=== PATIENT | male | born 1945 | race African-American/Black ===

== ENCOUNTER 2019-12-03 10:13 | Outpatient (REF) | payer MEDICARE, SELFPAY ==
--- NOTE | 2019-12-03 10:23 | XR_ITS ---
EXAMINATION: XR LUMBOSACRAL SPINE CLINICAL INFORMATION: Lower back pain COMPARISON: None TECHNIQUE: Three views of the lumbosacral spine. FINDINGS: There is no acute fracture or subluxation. Mild dextroscoliosis. Vertebral body heights are maintained. Diffuse disc space narrowing with endplate sclerosis. Prominent bridging osteophytes bilaterally and anteriorly. Multilevel facet arthropathy. The sacroiliac joints are symmetric. The sacrum appears intact. The visualized bowel gas pattern is unremarkable. IMPRESSION: Moderate degenerative changes of the lumbar spine.
== END 2019-12-03 10:14 | disposition home or self-care (01) ==
LOC: HO.XRAY 10:13
PROVIDERS: PCP Internal Medicine; Visit Provider Internal Medicine
DX: M54.5 Low back pain (principal); M79.662 Pain in left lower leg
CPT/HCPCS: 72100

== ENCOUNTER 2019-12-23 10:18 | Outpatient (REF) | payer MEDICARE, SELFPAY ==
--- NOTE | 2019-12-23 10:18 | MR_ITS ---
EXAMINATION: MR LUMBAR SPINE WITHOUT CONTRAST CLINICAL INFORMATION: Low back pain and radiculopathy. COMPARISON: MRI dated 07/05/2015. TECHNIQUE: MRI of the lumbar spine was obtained using routine sequences without contrast. FINDINGS: VERTEBRAL BODIES AND PARASPINAL STRUCTURES: There is a worsened dcdi-af-muzkcgba rightward curvature of the lumbar spine centered at the L2-L3 level. Severe disc space narrowing with mixed chronic and mild edematous endplate changes has progressed at the L3-L4 level. Moderate loss of disc height with chronic endplate changes also evident at the L2-L3, L4-L5, and L5-S1 levels. No compression fractures are visible. There is a reversal of the normal lumbar lordosis. The paraspinal soft tissues are unremarkable. CONUS MEDULLARIS AND CAUDA EQUINA: Normal, terminating at the level of L1-L2. No lower cord signal abnormality is seen. The cauda equina nerve roots are normal. SPINAL LEVELS: L1-L2: Mild disc bulge present without central canal stenosis. Mild foraminal narrowing without change. L2-L3: Moderate loss of disc height with significant ossific spurring lateralized to the left side. Moderate facet arthropathy and mild central canal stenosis are stable. Endplate spurring contacts the extraforaminal left L2 nerve root without change. Mild foraminal encroachment. L3-L4: Worsened degenerative disc disease compared to the prior study with exuberant facet arthropathy, more so on the left side. Worsened moderate central canal stenosis with facet spurring impinging upon the left L4 nerve root in the subarticular zone. Osseous spurring compresses the exiting left L3 nerve root, as on the prior study. Broad-based right lateral disc bulge also continues to distort the extraforaminal right L3 nerve root. L4-L5: Ywaxcjnz-jw-stctsv loss of disc height with exuberant facet arthropathy and a generalized disc bulge result in moderate central canal stenosis and impingement of the L5 nerve roots in the subarticular zones without change. Fdnpsaeu-da-somsxz foraminal narrowing again evident with mild distortion of the exiting right L4 nerve root. L5-S1: Hypertrophic facet arthropathy and posterior disc bulge with endplate spurring remains stable with severe left foraminal encroachment and moderate right foraminal narrowing. No central canal stenosis. MR/MR lumbar spine wo con IMPRESSION: 1. Worsened vdie-nh-gjqughnu rightward lumbar spinal curvature centered at the L2-L3 level with progressed severe spondylosis at L3-L4. Moderate central canal stenosis at this level with facet arthropathy impinging upon the left L4 nerve root. Osseous spurring and bulging disc also continue to compress both L3 nerve roots. 2. Moderate degenerative disc disease and facet arthropathy at L2-L3, L4-L5, and L5-S1 are otherwise without significant change.
== END 2019-12-23 10:19 | disposition home or self-care (01) ==
LOC: HO.MRI 10:18
PROVIDERS: PCP Internal Medicine; Visit Provider Internal Medicine
DX: M54.16 Radiculopathy, lumbar region (principal)
CPT/HCPCS: 72148

== ENCOUNTER 2020-07-01 09:43 | Outpatient (REF) | payer OTHER, SELFPAY ==
--- NOTE | ~2020-07-01 | CT_ITS ---
EXAMINATION: CT CHEST WITHOUT CONTRAST CLINICAL INFORMATION: Asbestos exposure COMPARISON: Previous chest CT June 2014 TECHNIQUE: Multidetector volumetric CT imaging of the chest was done. Axial MIP volume rendering provided. Sagittal and coronal reformatted images were obtained. This CT examination was performed using dose optimization techniques as appropriate, variously including the following: *Automated exposure control *Adjustment of mA and/or kV according to patient size (this includes techniques or standardized protocols for targeted exams where dose is matched to indication/reason for exam; i.e. extremities or head) *Use of iterative reconstruction technique DLP: 157 mGy-cm FINDINGS: LUNGS: There are innumerable small cysts seen throughout the lungs. Largest cyst measures 1 cm. This is increased from June 2014 exam. There are small calcified and noncalcified pulmonary nodules that are stable, largest measuring 2 to 3 mm. No bronchiectasis or endobronchial or endotracheal lesion is seen. MEDIASTINUM: The mediastinum is normal. PLEURA: There is no pleural effusion. No pleural mass or thickening. AXILLA: There is bilateral axillary lymphadenopathy, left greater than right. Lymph nodes are upper normal in size. UPPER ABDOMEN: Unremarkable. OSSEOUS STRUCTURES: There is increased sclerosis of the T5 vertebral body. This is similar to 2015 CT scan and therefore probably benign. Bony structures are otherwise unremarkable. CT/CT chest wo con IMPRESSION: Innumerable small lung cysts increased from 2015. This may represent pulmonary Langerhans cell histiocytosis related to smoking. Differential would include NARANJO, changes from interstitial pneumonitis such as DIP or LIP. This can also be seen with systemic diseases such as neurofibromatosis, amyloid and light chain deposition disease. No evidence of pleural asbestos related disease or pulmonary asbestosis is seen. Nonspecific diffuse sclerosis of the T5 vertebral body. This is similar to 2015 exam and therefore probably benign.
== END 2020-07-01 09:44 | disposition home or self-care (01) ==
LOC: HO.CT 09:43
PROVIDERS: PCP Internal Medicine; Visit Provider Internal Medicine
DX: Z77.090 Contact with and (suspected) exposure to asbestos (principal)
CPT/HCPCS: 71250

== ENCOUNTER 2020-08-24 15:36 | Outpatient (REF) | payer OTHER, SELFPAY ==
--- NOTE | ~2020-08-24 | US_ITS ---
EXAMINATION: US RETROPERITONEAL COMPLETE (RENAL) CLINICAL INFORMATION: Nocturia. COMPARISON: None TECHNIQUE: Real-time imaging of the kidneys and bladder. FINDINGS: RIGHT KIDNEY: 10.3 x 6.5 x 6.1 cm (SAG x AP x TRV). The kidney is normal in size and contour. Renal cortical thickness is normal. No calculi or focal parenchymal lesions. No hydronephrosis. LEFT KIDNEY: 10.6 x 6.9 x 6.2 cm (SAG x AP x TRV). The kidney is normal in size and contour. Renal cortical thickness is normal. No calculi or focal parenchymal lesions. No hydronephrosis. BLADDER: The bladder wall is slightly thickened and trabeculated. No stone or mass is seen. Bilateral ureteral jets are demonstrated. Prevoid bladder volume is 202 mL. Postvoid bladder volume is 49.2 mL. The prostate gland is enlarged and protrudes into the base of the bladder. The prostate gland measures 4.7 x 4.2 x 5.8 cm, volume 61 mL. US/US retroperitoneal comp IMPRESSION: Normal renal ultrasound. Slightly thickened trabeculated bladder wall. Small 49 mL post void bladder residual. Enlarged prostate gland that protrudes into the base of the bladder..
== END 2020-08-24 15:37 | disposition home or self-care (01) ==
LOC: HO.HMGCX 15:36
PROVIDERS: PCP Internal Medicine; Visit Provider Internal Medicine
DX: R35.1 Nocturia (principal)
CPT/HCPCS: 76770

== ENCOUNTER → 2020-10-04 09:58 | Outpatient (BNVA) | payer OTHER, SELFPAY | PROVIDERS: PCP Internal Medicine | DX: R35.1 Nocturia (principal); N40.1 Benign prostatic hyperplasia with lower urinary tract symptoms; N13.8 Other obstructive and reflux uropathy | CPT/HCPCS: 51798 ==

== ENCOUNTER 2020-11-08 09:26 | Outpatient (REF) | payer MEDICARE, SELFPAY ==
[2020-11-08 10:45] LABS: PSA,Total (Free>4and<10) 0.42 ng/mL (0.00-4.00)
== END 2020-11-08 09:27 | disposition home or self-care (01) ==
LOC: HO.LAB 09:26
PROVIDERS: PCP Internal Medicine; Visit Provider Urology
DX: Z12.5 Encounter for screening for malignant neoplasm of prostate (principal); N13.8 Other obstructive and reflux uropathy; N40.1 Benign prostatic hyperplasia with lower urinary tract symptoms
CPT/HCPCS: 36415; 84153

== ENCOUNTER → 2020-11-15 09:42 | Outpatient (BNVA) | payer MEDICARE, SELFPAY | PROVIDERS: Visit Provider Urology | DX: N40.1 Benign prostatic hyperplasia with lower urinary tract symptoms (principal); N13.8 Other obstructive and reflux uropathy; R35.1 Nocturia | CPT/HCPCS: 51798; 99212 ==

== ENCOUNTER → 2021-05-17 09:35 | Outpatient (BNVA) | payer MEDICARE, SELFPAY | PROVIDERS: Visit Provider Urology | DX: N32.81 Overactive bladder (principal); R35.1 Nocturia; N40.1 Benign prostatic hyperplasia with lower urinary tract symptoms; N13.8 Other obstructive and reflux uropathy | CPT/HCPCS: 51798; 99212 ==

== ENCOUNTER → 2021-07-19 08:45 | Outpatient (BNVA) | payer MEDICARE, SELFPAY | PROVIDERS: PCP Internal Medicine; Visit Provider Urology | DX: N40.1 Benign prostatic hyperplasia with lower urinary tract symptoms (principal); N32.81 Overactive bladder; N13.8 Other obstructive and reflux uropathy; R35.1 Nocturia | CPT/HCPCS: Q3014 ==

== ENCOUNTER 2021-08-04 11:07 | Outpatient (REF) | payer MEDICARE, SELFPAY ==
--- NOTE | ~2021-08-04 | MR_ITS ---
EXAMINATION: MR LUMBAR SPINE WITHOUT CONTRAST CLINICAL INFORMATION: 76-year-old with increasing low back and left leg pain and numbness. Worsening radiculopathy. Evaluate for stenosis. COMPARISON: 12/23/2019 MRI. TECHNIQUE: MRI of the lumbar spine was obtained using routine sequences without contrast. FINDINGS: Coronal Alignment: There is moderate mid lumbar dextrocurvature similar to the previous exam, convex to the right at L2-L3. Sagittal Alignment: There is mild lordotic reversal centered at L2-L3 stable in appearance. Lumbosacral Junction: Normal. Five ksz-leh-hzlpyqg lumbar-type vertebral bodies. Vertebral Bodies: Vertebral body heights are well maintained stable in appearance. Disc Spaces and Endplates: Severe disc space height loss, Schmorl's nodes, disc desiccation and spondylosis at L5-S1 stable in appearance. Kcszhjow-qp-hkcrzg disc space height loss asymmetric to the right with intradiscal degenerative signal changes, Schmorl's nodes and mild spondylosis at L4-L5 unchanged. Severe disc space height loss at L3-L4 with Schmorl's nodes and prominent spondylosis similar to the previous exam. Rohzzapx-tm-ljwxqt disc space height loss, Schmorl's nodes and spondylosis at L2-L3 stable in appearance. Tent-rg-anxxnkib disc space height loss, disc desiccation and spondylosis at L1-L2 is unchanged. Extensive multilevel anterior and paravertebral bridging osteophytosis is noted similar to previous x-rays of 12/03/2019. Spinal Canal: No abnormal developmental findings. Bone Marrow: There are mixed type I and type II degenerative marrow signal changes seen along the endplates most prominently at L3-L4 and L5-S1, with some progression of type II marrow signal changes along the endplates at L3-L4 since previous exam. No suspicious marrow replacing process. Conus Medullaris: Terminates at L1-L2. Morphology and signal is normal. Intradural Nerve Roots: Within normal limits. L5-S1: Concentric disc osteophyte complex stable in appearance which contacts the S1 nerve root sleeves bilaterally unchanged without significant spinal canal stenosis. Moderate bilateral facet arthrosis is stable, with severe left-sided and moderate right-sided neural foraminal stenosis unchanged in appearance. L4-L5: Concentric disc bulging is noted with a superimposed small central extruded disc herniation with mild cephalad migration, with flattening of the ventral dural sac similar to the previous exam. Ligamentum flavum thickening and dqqwfynr-jr-dzzrkk bilateral facet arthropathy stable in appearance with moderate central spinal canal stenosis stable in appearance and severe bilateral subarticular recess stenosis, with encroachment on the traversing L5 nerve roots bilaterally unchanged. Moderate left-sided and vgpymfar-ea-vloctq right-sided neural foraminal stenosis, stable in appearance, with disc bulging encroaching on the exiting right L4 nerve root stable in appearance. Facet spurring abuts the exiting left L4 nerve root unchanged. L3-L4: Previously noted disc bulging is less apparent on the current study. Posterolateral osteophytic ridging is still present asymmetric to the left similar to the previous exam. There has been no change in facet arthropathy left more than right and ligamentum flavum thickening. There is improved visualization of the left subarticular zone, with better visualization of the traversing left L4 nerve root, now with the moderate left-sided subarticular recess stenosis compared to severe on the previous study with mild central spinal canal stenosis also improved. Bxmceutr-es-grqelc left-sided neural foraminal stenosis is stable with impingement on the exiting left L3 nerve root unchanged in appearance. Mild foraminal narrowing on the right with disc osteophyte complex abutting the extra foraminal right L3 nerve root unchanged in appearance. Marked left-sided and frxu-bp-ygxqxwka right-sided facet arthrosis and ligamentum flavum thickening are stable. L2-L3: Bilateral paravertebral/posterolateral endplate osteophytosis similar to the previous exam with small central disc osteophyte complex and slight flattening of the central dural sac stable in appearance. Rbnv-av-dysozyoi bilateral facet arthropathy is stable with stable mild central canal stenosis. Lpal-kh-fyrbigii right and mild left-sided neural foraminal stenosis are stable in appearance. L1-L2: No significant disc bulge or herniation. Mild facet arthropathy stable in appearance. No significant canal stenosis. Mild bilateral neural foraminal narrowing stable in appearance. T12-L1: No disc bulge or herniation. Moderate bilateral facet arthrosis stable in appearance with ligamentum flavum thickening without significant spinal canal stenosis. Moderate bilateral neural foraminal stenosis is stable. Bilateral facet arthropathy at T11-T12 also noted with moderate bilateral neural foraminal stenosis unchanged. Paraspinal/Retroperitoneal: The visualized paravertebral soft tissues are grossly unremarkable. Subcentimeter simple-appearing cyst medial cortex upper pole right kidney noted on current study. Limited evaluation.?No specific follow up recommended based on the current ACR Best Practice Guidelines.? MR/MR lumbar spine wo con IMPRESSION: 1. Mid lumbar dextrocurvature stable in appearance and mild lordotic reversal at L2-L3 stable in appearance. 2. Multilevel DDD and spondylosis with multilevel bilateral facet arthropathy largely unchanged in appearance. Disc bulging at L3-L4 is less apparent on current study, with an improved appearance to the left subarticular zone at this level and improved appearance to the central canal. See above for details. 3. Multilevel disc bulging, disc herniations and disc osteophyte complexes are otherwise unchanged in appearance with spinal canal stenosis at L4-L5 stable in appearance. 4. Multilevel bilateral neural foraminal stenosis, similar in appearance to the previous study with multilevel exiting neural impingement unchanged in appearance.
== END 2021-08-04 11:08 | disposition home or self-care (01) ==
LOC: HO.MRI 11:07
PROVIDERS: Visit Provider Internal Medicine
DX: M54.16 Radiculopathy, lumbar region (principal)
CPT/HCPCS: 72148

== ENCOUNTER → 2022-01-19 14:43 | Outpatient (BNVA) | payer MEDICARE, SELFPAY | PROVIDERS: PCP Internal Medicine; Visit Provider Urology | DX: N40.1 Benign prostatic hyperplasia with lower urinary tract symptoms (principal); N13.8 Other obstructive and reflux uropathy; N32.81 Overactive bladder; R35.1 Nocturia | CPT/HCPCS: 51798; 99212 ==

== ENCOUNTER → 2022-07-31 11:02 | Outpatient (BNVA) | payer MEDICARE, SELFPAY | PROVIDERS: PCP Internal Medicine; Visit Provider Urology | DX: N40.1 Benign prostatic hyperplasia with lower urinary tract symptoms (principal); N13.8 Other obstructive and reflux uropathy; R35.1 Nocturia; N32.81 Overactive bladder; R39.12 Poor urinary stream; R33.8 Other retention of urine; Z79.899 Other long term (current) drug therapy | CPT/HCPCS: 51798; 99212 ==

== ENCOUNTER → 2022-09-14 10:33 | Outpatient (REF) | payer MEDICARE, SELFPAY ==
--- NOTE | ~2022-09-14 | NM_ITS ---
EXAMINATION: NM BONE SCAN OF THE WHOLE BODY CLINICAL INFORMATION: Osteoblastic lesion T4 vertebral body. COMPARISON: The previous bone scan dated 07/11/[address] scan of the chest dated 07/01/2020 are available for comparison. No recent radiographs are available for comparison. TECHNIQUE: Multiple gamma scintillation camera images of the whole body were performed 2.5 hours following the intravenous administration of 30 mCi Tc-99m MDP. FINDINGS: In the head, no significant abnormalities are present. In the thoracic cage and upper extremities, no significant abnormalities are present. In the spine, there is a mild thoracolumbar scoliosis with lumbar convexity to the right. There is mildly increased activity in the T5 vertebral body. There is mildly increased activity in the left side of the L3 and L4 vertebra. In the pelvis, no significant abnormalities are present. In the lower extremities, no significant abnormalities are present. No other definite bony abnormalities are noted. The urinary bladder and faint visualization of both kidneys are noted. Compared to the previous scan dated 07/11/2015, the abnormality at T5 is slightly more intense than on the prior study, but some abnormality at this site was present previously. This was previously referred to as T4, but the better quality images of the current study resolve this abnormality better to be at T5, corresponding to the CT sclerosis subsequently noted below. The remainder the scan is not significantly changed. The CT scan of the chest dated 07/01/2020 shows a mild diffuse sclerosis of the T5 vertebral body, reported as not significantly changed from the less recent 07/02/[address] scan, the images from latter not available for comparison. NM/[place] bone scan whole body IMPRESSION: 1. A mild nonspecific abnormality in the T5 vertebral body corresponds to stable sclerosis on prior CT images and is probably benign. This is slightly more intense on the current study, but this is likely due to the better resolution of the images on the current study. If clinically indicated, this could be further characterized with MRI, performed without and with intravenous contrast. 2. A few additional mild nonspecific abnormalities are noted as described above and these are all likely arthritic or traumatic in etiology. None of these abnormalities is strongly suspicious for metastatic disease.
== END ==
LOC: HO.NUCMED 10:33
PROVIDERS: PCP Internal Medicine; Visit Provider Internal Medicine
DX: S43.119A Subluxation of unspecified acromioclavicular joint, initial encounter (principal)
CPT/HCPCS: 78306; A9503

== ENCOUNTER 2023-01-29 10:47 | Outpatient (AMB) | payer MEDICARE, SELFPAY ==
--- NOTE | 2023-01-29 10:56 | A.OFFVIS_ITS ---
Intake Intake Visit Reasons: 6m/PVR Intake Note: Patient is Present for Follow Up Urology Medication: Finasteride, Tamsulosin, Tolterodine Antibiotic Allergies: None Blood Thinners: None PVR: 73 Allergies none Allergy (Unknown, Uncoded 01/29/23 10:56) Unknown HPI HPI Comments History of Present Illness Details Bipin is a very pleasant male. He is a patient Dr. Goel. He is seen for the following urologic conditions - nocturia - lower urinary tract symptoms - OAB dry PVR 73 On tolterodine with concomitant prostate medications - continued with good control of bladder urgency with effective emptying Stable bladder emptying Nocturia x3 - does get 4-1/2 hours sleep before 1st void Continue to follow Q 6 month based on PVR and symptoms May try stopping tamsulosin Lower urinary tract symptoms Current encounter for medication Initial symptoms nocturia x2, Weakness of stream, Incomplete bladder emptying Current therapy combination finasteride and tamsulosin 0.4 Tolterodine added for urinary urgency and frequency PSA 11/08 0.2 PFSH Medical History Arthritis Bilateral inguinal hernia Bilateral open angle glaucoma Benign essential HTN Chronic constipation Colon polyps Surgical History History of surgery Social History Patient Tobacco Use Status: Never used Tobacco Review of Systems Const Denies chills and Denies fever(s) Card Reports no additional complaints and Denies syncope Resp Denies cough GI Denies abdominal pain and Denies heartburn Reports as per HPI and Denies change in libido Neuro Denies syncope Psych Denies change in libido Endo Denies change in libido Physical Exam Const General: cooperative, healthy appearing, comfortable and no acute distress Orientation/consciousness: patient oriented x3 HEENT Face and sinus: Yes normal facial exam Mouth: moist mucous membranes Neck Neck: Yes normal visual inspection, Yes full ROM and Yes trachea midline Chest Chest palpation & inspection: normal inspection of the chest Resp Effort & Inspection: normal respiratory effort, able to speak in complete sentences and no respiratory distress GI Inspection: Yes normal to inspection Back/Spine/Pelvis Cervical Spine: normal cervical lordosis Thoracic/Lumbar Spine: thoracic and lumbar spine normal to inspection Skin General skin exam: no rashes or lesions noted Neuro General: patient oriented x3, gait normal, tone normal and moves all extremities Extrem General: Yes normal to inspection and Yes capillary refill normal Office Procedures Post Void Residual Post Residual Void Post Void Residual (PVR): 73 51405-[id number] Void Residual by ultrasound Results AMB Urinalysis, Automated UA Leukoctes 15 Pete/uL Last Edit by Lissa Madera [facility] [place] on 01/29/23 11:16 UA Nitrite Negative Last Edit by Lissa Madera [facility] [place] on 01/29/23 11:16 UA Urobilinogen 0.2 mg/dL Last Edit by Lissa Madera A on 01/29/23 11:1 6 UA Protein 0 mg/dL Last Edit by Lissa Madera [facility] [place] on 01/29/23 11:16 UA pH 6.5 Last Edit by Lissa Madera [facility] [place] on 01/29/23 11:16 UA Blood 0 Dino/uL Last Edit by Lissa Madera [facility] [place] on 01/29/23 11:16 UA Specific Elkins 1.010 Last Edit by Lissa Madera [facility] [place] on 01/29/23 11: 16 UA Ketone Negative Last Edit by Lissa Madera [facility] [place] on 01/29/23 11:16 UA Bilirubin 0 mg/dL Last Edit by Lissa Madera [facility] [place] on 01/29/23 11:16 UA Glucose 0 mg/dL Last Edit by Lissa Madera [facility] [place] on 01/29/23 11:16 Assessment & Plan Assessment & Plan (1) Overactive bladder: Code(s): N32.81 - Overactive bladder (2) BPH w urinary obs/LUTS: Code(s): N40.1 - Benign prostatic hyperplasia with lower urinary tract symptoms; N13.8 - Other obstructive and reflux uropathy Plan Six month follow-up PVR Orders: Orders AMB Post Void Residual by ultrasound Today N13.8 - Other obstructive and reflux uropathy, N40.1 - Benign prostatic hyperplasia with lower urinary tract symptoms AMB Urinalysis Automated Today Z13.9 - Encounter for screening, unspecified Patient Instructions: Imaging studies, laboratory and physical exam results were discussed and reviewed in detail. No major barriers to patient understanding were identified. An opportunity to ask questions regarding the treatment plan was provided. All questions were answered. The patient expressed understanding and agreement with the above treatment plan. The patient is aware they should contact our office by phone for worsening of their current condition or the appearance of new urologic symptoms. Compliance is encouraged with any medications and followup testing that is ordered. It is a privilege to participate in the urologic care of your patient. If you have any questions or concerns regarding treatment for the above conditions, or other urologic issues, please do not hesitate to contact me. The office telephone contact is [phone]. This note is constructed using voice recognition software. While every effort has been made to ensure accuracy tablet making machine operator errors may have been included. Yours sincerely, Dr Chuck Membreno MD, [facility] - Urology Providers of Expert, Compassionate Care for the Genitourinary System Coding Level of Care Code Est Pt Level 3 (12387) Diagnoses Overactive bladder N32.81 BPH w urinary obs/LUTS N40.1; N13.8 CPT Codes Post Residual Void - PVR CPT Code: 07586-Hrtr Void Residual by ultrasound ([id number])
== END 2023-01-29 11:26 | disposition home or self-care (01) ==
PROVIDERS: PCP Internal Medicine; Visit Provider Urology
DX: N32.81 Overactive bladder (principal); N40.1 Benign prostatic hyperplasia with lower urinary tract symptoms; N13.8 Other obstructive and reflux uropathy; Z13.9 Encounter for screening, unspecified
CPT/HCPCS: 99213

== ENCOUNTER → 2023-01-29 10:47 | Outpatient (BNVA) | payer MEDICARE, SELFPAY | PROVIDERS: PCP Internal Medicine; Visit Provider Urology | DX: N40.1 Benign prostatic hyperplasia with lower urinary tract symptoms (principal); N13.8 Other obstructive and reflux uropathy; N32.81 Overactive bladder | CPT/HCPCS: 51798; 81003; 99212 ==

== ENCOUNTER 2023-08-08 10:50 | Outpatient (AMB) | payer MEDICARE, SELFPAY ==
--- NOTE | 2023-08-08 11:02 | A.OFFVIS_ITS ---
Intake Visit Reasons: 6m/PVR Intake Note: Patient is Present for PVR/ Urology Med: Finasteride, Tolterodine, Tamsulosin Antibiotic Allergy:None Blood Thinner: None Last PVR: 73 Todays PVR: 0 Allergies none Allergy (Unknown, Uncoded 08/08/23 11:03) Unknown HPI Comments Details: Bipin is a very pleasant male. He is a patient Dr. Goel. He is seen for the following urologic conditions - nocturia - lower urinary tract symptoms - OAB dry Current PVR 0 Has had GI issues Refill medications Tried coming off tamsulosin but needed to restart On tolterodine with concomitant prostate medications - continued with good control of bladder urgency with effective emptying Stable bladder emptying Nocturia x3 - does get 4-1/2 hours sleep before 1st void Continue to follow Q 6 month based on PVR and symptoms Lower urinary tract symptoms Current encounter for medication Initial symptoms nocturia x2, Weakness of stream, Incomplete bladder emptying Current therapy combination finasteride and tamsulosin 0.4 Tolterodine added for urinary urgency and frequency PSA 11/08 0.2 PFSH Medical History Arthritis Bilateral inguinal hernia Bilateral open angle glaucoma Benign essential HTN Chronic constipation Colon polyps Surgical History History of surgery Social History Patient Tobacco Use Status: Never used Tobacco Review of Systems Const Denies chills and Denies fever(s) Card Reports no additional complaints and Denies syncope Resp Denies cough GI Denies abdominal pain and Denies heartburn Reports as per HPI and Denies change in libido Neuro Denies syncope Psych Denies change in libido Endo Denies change in libido Physical Exam Const General: cooperative, healthy appearing, comfortable and no acute distress Orientation/consciousness: patient oriented x3 HEENT Face and sinus: Yes normal facial exam Mouth: moist mucous membranes Neck Neck: Yes normal visual inspection, Yes full ROM and Yes trachea midline Chest Chest palpation & inspection: normal inspection of the chest Resp Effort & Inspection: normal respiratory effort, able to speak in complete senten zia and no respiratory distress GI Inspection: Yes normal to inspection Back/Spine/Pelvis Cervical Spine: normal cervical lordosis Thoracic/Lumbar Spine: thoracic and lumbar spine normal to inspection Skin General skin exam: no rashes or lesions noted Neuro General: patient oriented x3, gait normal, tone normal and moves all extremities Extrem General: Yes normal to inspection and Yes capillary refill normal Office Procedures Post Void Residual Post Residual Void Post Void Residual (PVR): 0 [id number] Void Residual by ultrasound Assessment & Plan Assessment & Plan (1) Nocturia more than twice per night: Code(s): R35.1 - Nocturia Category: Medical (2) BPH w urinary obs/LUTS: Code(s): N40.1 - Benign prostatic hyperplasia with lower urinary tract symptoms; N13.8 - Other obstructive and reflux uropathy Category: Medical (3) Overactive bladder: Code(s): N32.81 - Overactive bladder Category: Medical Plan Six-month follow-up Orders: Orders AMB Post Void Residual by ultrasound Today N13.8 - Other obstructive and reflux uropathy, N40.1 - Benign prostatic hyperplasia with lower urinary tract symptoms Prostate Specific Antigen 6 Months N13.8 - Other obstructive and reflux uropathy, N40.1 - Benign prostatic hyperplasia with lower urinary tract symptoms Patient Instructions: Imaging studies, laboratory and physical exam results were discussed and reviewed in detail. No major barriers to patient understanding were identified. An opportunity to ask questions regarding the treatment plan was provided. All questions were answered. The patient expressed understanding and agreement with the above treatment plan. The patient is aware they should contact our office by phone for worsening of their current condition or the appearance of new urologic symptoms. Compliance is encouraged with any medications and followup testing that is ordered. It is a privilege to participate in the urologic care of your patient. If you have any questions or concerns regarding treatment for the above conditions, or other urologic issues, please do not hesitate to contact me. The office telephon e contact is [phone]. This note is constructed using voice recognition software. While every effort has been made to ensure accuracy candy attendant errors may have been included. Yours sincerely, Dr Chuck Membreno MD, [facility] - Urology Providers of Expert, Compassionate Care for the Genitourinary System Coding Level of Care Code Est Pt Level 3 (72261) Diagnoses Nocturia more than twice per night R35.1 BPH w urinary obs/LUTS N40.1; N13.8 Overactive bladder N32.81 CPT Codes Post Residual Void - PVR CPT Code: 77873-Vpzi Void Residual by ultrasound ([id number])
== END 2023-08-08 11:29 | disposition home or self-care (01) ==
PROVIDERS: PCP Internal Medicine; Visit Provider Urology
DX: N40.1 Benign prostatic hyperplasia with lower urinary tract symptoms (principal); R35.1 Nocturia; N13.8 Other obstructive and reflux uropathy; N32.81 Overactive bladder
CPT/HCPCS: 99213

== ENCOUNTER → 2023-08-08 10:50 | Outpatient (BNVA) | payer MEDICARE, SELFPAY | PROVIDERS: PCP Internal Medicine; Visit Provider Urology | DX: N40.1 Benign prostatic hyperplasia with lower urinary tract symptoms (principal); N13.8 Other obstructive and reflux uropathy; N32.81 Overactive bladder; R35.1 Nocturia | CPT/HCPCS: 51798; 99212 ==

== ENCOUNTER 2024-02-06 09:29 | Outpatient (AMB) | payer MEDICARE, SELFPAY ==
--- NOTE | 2024-02-06 09:30 | A.OFFVIS_ITS ---
Intake Visit Reasons: 6M PSA(psa?) Intake Note: Patient is present for 6M/PS Urology Medication:TOLTERODINE,TAMSULOSIN,FINASTERIDE Antibiotic Allergy:NONE Blood Thinner:NONE Vb Net Developer Required: No Allergies none Allergy (Unknown, Uncoded 02/06/24 09:31) Unknown HPI Comments Details: Bipin is a very pleasant male. He is a patient Dr. Goel. He is seen for the following urologic conditions - nocturia - lower urinary tract symptoms - OAB dry Telemedicine Evaluation 15 min Consultation [id number] Video On tolterodine with concomitant prostate medications - continued with good control of bladder urgency with effective emptying Stable bladder emptying Nocturia x3 - does get 4-1/2 hours sleep before 1st void Continue to follow Q 6 month based on PVR and symptoms Lower urinary tract symptoms Current encounter for medication Initial symptoms nocturia x2, Weakness of stream, Incomplete bladder emptying Current therapy combination finasteride and tamsulosin 0.4 Tolterodine added for urinary urgency and frequency PSA 11/08 0.2 PFSH Medical History Arthritis Bilateral inguinal hernia Bilateral open angle glaucoma Benign essential HTN Chronic constipation Colon polyps Surgical History History of surgery Social History Patient Tobacco Use Status: Never used Tobacco Review of Systems Const All systems reviewed & are unremarkable except as noted in HPI and below Reports no additional complaints Resp Reports no additional complaints GI Reports no additional complaints Reports as per HPI Musc Reports no additional complaints Physical Exam Telemedicine evaluation Appropriate responses Regular breathing rate and rhythm HEENT Head: Yes normal to inspection Ears: hearing grossly normal bilaterally Eyes General: appearance normal, both eyes and all related structures Neck Neck: Yes normal visual inspection Chest Chest palpation & inspection: normal inspection of the chest Resp Effort & Inspection: normal respiratory effort and able to speak in complete sentences Telehealth Telehealth Location of provider rendering services: practice address Location of patient: address on file Patient Identification confirmed using: Name, : Yes Telehealth method: voice only Patient verbally consented to treatment: Yes Patient verbally consented to billing insurance company: Yes Patient informed of any privacy concerns related to visit: Yes Assessment & Plan Assessment & Plan (1) BPH w urinary obs/LUTS: Code(s): N40.1 - Benign prostatic hyperplasia with lower urinary tract symptoms; N13.8 - Other obstructive and reflux uropathy Category: Medical (2) Nocturia more than twice per night: Code(s): R35.1 - Nocturia Category: Medical (3) Overactive bladder: Code(s): N32.81 - Overactive bladder Category: Medical Plan Refill medications Six-month follow-up office Medications: Refilled tolterodine ER 4 mg PO DAILY 90 days 90 caps 1RF N31.8 - Other neuromuscular dysfunction of bladder, N40.0 - Benign prostatic hyperplasia without lower urinary tract symptoms tolterodine ER 4 mg PO DAILY 90 days 90 caps 1RF N31.8 - Other neuromuscular dysfunction of bladder, N40.0 - Benign prostatic hyperplasia without lower urinary tract symptoms tamsulosin 0.4 mg PO BEDTIME 90 days 90 caps 1RF N13.8 - Other obstructive and reflux uropathy, N40.1 - Benign prostatic hyperplasia with lower urinary tract symptoms Patient Instructions: Imaging studies, laboratory and physical exam results were discussed and reviewed in detail. No major barriers to patient understanding were identified. An opportunity to ask questions regarding the treatment plan was provided. All questions were answered. The patient expressed understanding and agreement with the above treatment plan. The patient is aware they should contact our office by phone for worsening of their current condition or the appearance of new urologic symptoms. Compliance is encouraged with any medications and followup testing that is ordered. It is a privilege to participate in the urologic care of your patient. If you have any questions or concerns regarding treatment for the above conditions, or other urologic issues, please do not hesitate to contact me. The office telephone contact is [phone]. This note is constructed using voice recognition software. While every effort has been made to ensure accuracy health care facilities inspector errors may have been included. Yours sincerely, Dr Chuck Membreno MD, [facility] - Urology Providers of Expert, Compassionate Care for the Genitourinary System Coding Level of Care Code Tele Est Pt Level 3 (09448) Diagnoses BPH w urinary obs/LUTS N40.1; N13.8 Nocturia more than twice per night R35.1 Overactive bladder N32.81
== END 2024-02-06 15:47 | disposition home or self-care (01) ==
LOC: HO.HUSH 09:29
PROVIDERS: PCP Internal Medicine; Visit Provider Urology
DX: N40.1 Benign prostatic hyperplasia with lower urinary tract symptoms (principal); N13.8 Other obstructive and reflux uropathy; R35.1 Nocturia; N32.81 Overactive bladder
CPT/HCPCS: 99442

== ENCOUNTER 2024-07-11 10:05 | Outpatient (REF) | payer MEDICARE, SELFPAY ==
--- NOTE | ~2024-07-11 | MR_ITS ---
CLINICAL HISTORY: Radiculopathy MR lumbar spine without gadolinium Comparison: MR/OR/SR - MR LUMBAR SPINE WO CON - 08/04/21 11:32 EDT Findings: Trace retrolisthesis of L5 on S1 without change. Remaining alignment normal. Very mild dextrocurvature. No acute fracture or pathologic bone lesion. Severe degenerative type endplate marrow changes are present, similar to the prior exam. Conus at the L1-L2 level. L1-L2: Right neural foraminal/lateral disc osteophyte complex. Mild narrowing of the right neural foramen. No significant central canal narrowing or narrowing of the left neural foramen. No significant change. L2-L3: Large left-sided bridging osteophyte. No disc bulge or herniation mild facet osteoarthritis. No significant narrowing of the central canal. Mild neural foraminal narrowing. No significant change. L3-L4: Near-complete ankylosis. Left-sided facet osteoarthritis. Mild mass effect on the left side of the thecal sac. Overall, no significant central canal stenosis. Moderate stenosis of the left neural foramen and mild narrowing of the right neural foramen without change. L4-L5: Moderate broad-based disc bulge. Moderate facet osteoarthritis. Moderate central canal stenosis. Moderate stenosis of bilateral neural foramina, [id number]-left. No significant change. L5-S1: Moderate disc osteophyte complex. Mild facet osteoarthritis. No significant central canal narrowing. Moderate stenosis of bilateral neural foramina. No significant change. Paraspinous musculature intact. IMPRESSION: 1. There are severe degenerative changes as above. Findings are similar to the prior study. This document has been electronically signed by: Mile Bermudez MD on 07/14/2024 16:03:59
== END 2024-07-11 10:06 | disposition home or self-care (01) ==
LOC: HO.MRI 10:05
PROVIDERS: PCP Internal Medicine; Visit Provider Internal Medicine
DX: M54.9 Dorsalgia, unspecified (principal); M54.16 Radiculopathy, lumbar region
CPT/HCPCS: 72148

== ENCOUNTER → 2024-07-11 10:21 | Outpatient (BNV) | payer MEDICARE, SELFPAY | PROVIDERS: PCP Internal Medicine; Visit Provider Radiology Diagnostic Radiology | DX: M51.369 Other intervertebral disc degeneration, lumbar region without mention of lumbar back pain or lower extremity pain (principal) | CPT/HCPCS: 72148 ==

== ENCOUNTER 2024-08-04 10:52 | Outpatient (AMB) | payer MEDICARE, SELFPAY ==
--- NOTE | 2024-08-04 10:57 | MHC.OFFVIS ---
Intake Visit Reasons: 6M PVR Intake Note: Patient is present for 6M/PVR Urology Medication:TAMSULOSIN,FINASTERIDE,TOLTERODINE Antibiotic Allergy:NONE Blood Thinner:NONE TODAY'S PVR: 11ML'S Corporate Librarian Required: No Allergies none Allergy (Unknown, Uncoded 08/04/24 10:59) Unknown HPI Comments Details: Bipin is a very pleasant male. He is a patient Dr. Goel. He is seen for the following urologic conditions - nocturia - lower urinary tract symptoms - OAB dry Six-month follow-up PVR 11 cc On tolterodine with concomitant prostate medications finasteride and tamsulosin- continued with good control of bladder urgency with effective emptying Stable bladder emptying Nocturia x3 - does get 4-1/2 hours sleep before 1st void Lower urinary tract symptoms Current encounter for medication Initial symptoms nocturia x2, Weakness of stream, Incomplete bladder emptying Current therapy combination finasteride and tamsulosin 0.4 Tolterodine added for urinary urgency and frequency PSA 11/08 0.2 PFSH Medical History Arthritis Bilateral inguinal hernia Bilateral open angle glaucoma Benign essential HTN Chronic constipation Colon polyps Surgical History History of surgery Social History Patient Tobacco Use Status: Never used Tobacco Review of Systems Const Denies chills and Denies fever(s) Card Reports no additional complaints and Denies syncope Resp Denies cough GI Denies abdominal pain and Denies heartburn Reports as per HPI and Denies change in libido Neuro Denies syncope Psych Denies change in libido Endo Denies change in libido Physical Exam Const General: cooperative, healthy appearing, comfortable and no acute distress Orientation/consciousness: patient oriented x3 HEENT Face and sinus: Yes normal facial exam Mouth: moist mucous membranes Neck Neck: Yes normal visual inspection, Yes full ROM and Yes trachea midline Chest Chest palpation & inspection: normal inspection of the chest Resp Effort & Inspection: normal respiratory effort, able to speak in complete sentences and no respiratory distress GI Inspection: Yes normal to inspection Back/Spine/Pelvis Cervical Spine: normal cervical lordosis Thoracic/Lumbar Spine: thoracic and lumbar spine normal to inspection Skin General skin exam: no rashes or lesions noted Neuro General: patient oriented x3, gait normal, tone normal and moves all extremities Extrem General: Yes normal to inspection and Yes capillary refill normal Office Procedures Post Void Residual Post Residual Void Post Void Residual (PVR): 11 [id number] Void Residual by ultrasound Assessment & Plan Assessment & Plan (1) BPH w urinary obs/LUTS: Code(s): N40.1 - Benign prostatic hyperplasia with lower urinary tract symptoms; N13.8 - Other obstructive and reflux uropathy Category: Medical (2) Nocturia more than twice per night: Code(s): R35.1 - Nocturia Category: Medical (3) Overactive bladder: Code(s): N32.81 - Overactive bladder Category: Medical Plan Six-month follow-up Orders: Orders AMB Urinalysis Automated Today Z13.9 - Encounter for screening, unspecified Medications: Refilled finasteride 5 mg PO DAILY 90 days 90 tabs 3RF N13.8 - Other obstructive and reflux uropathy, N40.1 - Benign prostatic hyperplasia with lower urinary tract symptoms, R33.9 - Retention of urine, unspecified tamsulosin 0.4 mg PO BEDTIME 90 days 90 caps 1RF N13.8 - Other obstructive and reflux uropathy, N40.1 - Benign prostatic hyperplasia with lower urinary tract symptoms Patient Instructions: This note is constructed using voice recognition software. While every effort has been made to ensure accuracy keg inspector errors may have been included. Imaging studies, laboratory and physical exam results were discussed and reviewed in detail. No major barriers to patient understanding were identified. An opportunity to ask questions regarding the treatment plan was provided. All questions were answered. The patient expressed understanding and agreement with the above treatment plan. The patient is aware they should contact our office by phone for worsening of their current condition or the appearance of new urologic symptoms. Compliance is encouraged with any medications and followup testing that is ordered. It is a privilege to participate in the urologic care of your patient. If you have any questions or concerns regarding treatment for the above conditions, or other urologic issues, please do not hesitate to contact me. The office telephone contact is [phone]. Sincerely, Dr Chuck Membreno MD, [facility] - Urology Compassionate Specialist Care for the Genitourinary System Coding Level of Care Code Est Pt Level 3 (79091) Complex EM visit Add On G2211 Diagnoses BPH w urinary obs/LUTS N40.1; N13.8 Nocturia more than twice per night R35.1 Overactive bladder N32.81 CPT Codes Post Residual Void - PVR CPT Code: 37922-Liad Void Residual by ultrasound ([id number])
== END 2024-08-04 11:34 | disposition home or self-care (01) ==
LOC: HO.HUSH 10:53
PROVIDERS: PCP Internal Medicine; Visit Provider Urology
DX: N40.1 Benign prostatic hyperplasia with lower urinary tract symptoms (principal); N13.8 Other obstructive and reflux uropathy; R35.1 Nocturia; N32.81 Overactive bladder
CPT/HCPCS: 99213; G2211

== ENCOUNTER → 2024-08-04 10:52 | Outpatient (BNVA) | payer MEDICARE, SELFPAY | PROVIDERS: PCP Internal Medicine; Visit Provider Urology | DX: N40.1 Benign prostatic hyperplasia with lower urinary tract symptoms (principal); N13.8 Other obstructive and reflux uropathy; N32.81 Overactive bladder; R35.1 Nocturia | CPT/HCPCS: 51798; 99212 ==

== ENCOUNTER 2024-08-24 14:44 | Outpatient (AMB) | payer MEDICARE, SELFPAY ==
--- NOTE | 2024-08-24 14:46 | A.OFFPC_ITS ---
Vital Signs 08/24/24 14:53 Height 5 ft 7.83 in Weight 199 lb 4 oz BMI 30.4 BP 96/64 Blood Pressure Location Rt brachial Position Sitting Respiration 16 Pulse 71 Pulse Source Pulse Oximeter Temp 97.2 F Temp Source Temporal Artery Scan Pulse Oximetry (%) 98 Oxygen Delivery Method Room Air Intake Visit Reasons: issa [email or web address]() Enameler Required: No Accompanied by: Self / Same As Patient Allergies none Allergy (Unknown, Uncoded 08/24/24 15:22) Unknown Medication List - Last Reconciled 08/24/24 by Francie Kessler PA-C acetaminophen 325 mg PO QID PRN amlodipine 10 mg PO DAILY brimonidine 0.15% 1 drp ophthalmic (eye) TID dorzolamide-timolol 22.3-6.8 mg/mL mL ophthalmic (eye) finasteride 5 mg PO DAILY 90 days lactulose 10 grams PO BEDTIME latanoprost 0.005% 1 drp ophthalmic (eye) QPM lisinopril 10 mg PO DAILY [id number] mcg (Men 50 Plus Multivitamin) 1 tab PO DAILY naproxen 500 mg PO BID tamsulosin 0.4 mg PO BEDTIME 90 days tolterodine ER 4 mg PO DAILY 90 days Tobacco use date assessed: 08/24/24 Fall risk assessment: No Falls in past year Last assessed Fall Risk: 08/24/24 Dental Screening Dental Screen Date: 08/24/24 Did you have a dental visit in the last 12 months?: Yes Did you have a dental problem in the last 6 months where you did not have access to dental care?: No Was dental information given to patient?: Patient has dentist HPI establish care() HPI Details The patient is an 79-year-old male presenting to establish a new primary care provider due to Dr. Goel retired along with for a routine check-up and medication review. The patient has a history of hypertension, currently managed with amlodipine and lisinopril, both at 10 mg doses. He reports no leg swelling associated with these medications. The patient has glaucoma in the left eye, for which he uses multiple eye drops including Timolol. He also has benign prostatic hyperplasia, managed with finasteride. The patient experiences overactive bladder symptoms, for which he takes tolterodine. He reports that the medication is effective in managing his symptoms. The patient reports episodes of dizziness occurring occasionally after meals. He describes the dizziness as lightheadedness rather than vertigo. He has previously visited the ER for this issue but found the prescribed medication ineffective. The patient underwent a colonoscopy in 2019, which was normal. He is due for another colonoscopy this year as part of his preventative care. Social History - Living Situation: Does not live alone and is active in daily activities without assistance. - Alcohol Use: Denies alcohol consumptio n. [facility] Medical History Encounter for preventive care Vertigo Glaucoma Establishing care with new doctor, encounter for Arthritis Bilateral inguinal hernia Bilateral open angle glaucoma Benign essential HTN Chronic constipation Colon polyps Surgical History History of colonoscopy (~09/03/19) History of surgery Family History Father No problems noted. Mother Diabetes High blood pressure Social History Housing: House Alcohol intake: current Alcohol intake frequency: does not drink Patient Tobacco Use Status: Former Tobacco user service: Yes Current occupational status: retired Cognitive needs: No Hearing needs: No Vision needs: Yes (rx glasses) Questionnaire PHQ-9 Over the last 2 weeks, how often have you been bothered by any of the following problems? 1. Little interest or pleasure in doing things: not at all 2. Feeling down, depressed, or hopeless: not at all 3. Trouble falling or staying asleep, or sleeping too much: not at all 4. Feeling tired or having little energy: not at all 5. Poor appetite or overeating: not at all 6. Feeling bad about yourself - or that you are a failure or have let yourself or your family down: not at all 7. Trouble concentrating on things, such as reading the newspaper or watching television: not at all 8. Moving or speaking so slowly that other people could have noticed. Or the opposite - being so fidgety or restless that you have been moving around a lot more than usual: not at all 9. Thoughts that you would be better off or of hurting yourself in some way: not at all Total score: 0 Depression Screening Interpretation: Negative Depression Screening Done: Yes 43314 - PHQ-9 Billing: Yes Source: Developed by Drs. Jasen Charles, Swetha Duncan, Reid Kaufman and colleagues, with an educational guillermo from [employer]. Thrive Questionnaire Date Thrive assessed: 08/24/24 I am a: Patient What is your living situation today?: I have a steady place to live Within the past 12 months, did the food you bought not last and you didn't have the money to get more?: Never true Within the past 12 months, did you worry whether your food would run out before you got money to buy more?: Never true Do you have trouble paying for medicines?: No Do you have trouble getting transportation to medical appointments?: No Do you have trouble paying your heating and electricity bill?: No Do you have trouble taking care of your child, family member or friend?: No Do you have trouble with day-to-day activities such as bathing, preparing meals, shopping, managing finances, etc.?: No Are you currently unemployed and looking for a job?: No Are you interested in more education?: No Please select the resources that you would like help with: None Currently or been in a relationship where the following occur: No concerns reported THRIVE Score: 0 AUDIT C Alcohol Use Questionnaire (AUDIT-C) 1. How often do you have a drink containing alcohol?: Never 3. How often do you have six or more drinks on one occasion?: Never Total Score: 0 Score Reviewed/Action Taken: No CALEB-7 AMB Questionnaire CALEB-7 Date CALEB - 7 assessed: 08/24/24 Feeling nervous, anxious, or on edge: 0 = Not at all Not being able to stop or control worryin = Not at all Worrying too much about different things: 0 = Not at all Trouble relaxin = Not at all Being so restless that it is hard to sit still: 0 = Not at all Becoming easily annoyed or irritable: 0 = Not at all Feeling afraid as if something awful might happen: 0 = Not at all Total CALEB-7 score (0-4 normal; 5-9 mild; 10-14 moderate; 15-21 severe): 0 Source: Developed by Drs. Jasen Charles, Swetha Duncan, Reid Kaufman and colleagues, with an educational guillermo from [employer]. CALEB-7 Assessment Billing CALEB-7 Assessment Tool: CALEB-7 Assessment 91789 Review of Systems Const Details: - Cardiovascular: Denies leg swelling. - Neurological: Reports dizziness occasionally after meals. Denies vertigo. - Gastrointestinal: Denies black or bloody stools, reports normal bowel movements. Physical exam (Primary Care) Vital Signs: Last Vital Signs Temp 97.2 F 08/24/24 14:53 Pulse 71 08/24/24 14:53 Resp 16 08/24/24 14:53 BP 96/64 08/24/24 14:53 Pulse Ox 98 08/24/24 14:53 Oxygen Delivery Method Room Air 08/24/24 14:53 Care Plan Goal for BP management: <140/90 at Goal BMI result Body Mass Index 30.4 BMI Assessment/Plan discussion: High BMI High, discussed plan: lifestyle, weight reduction, dietary, physical activity and alcohol moderation Tobacco/Smoking Status: Tobacco use Status Tobacco use date assessed 08/24/24 08/24/24 14:51 Patient Tobacco Use Status Former Tobacco user 08/24/24 15:11 PHQ-9: PHQ-9 Score PHQ-9: Total score 0 08/24/24 14:51 Depression Screening Interpretation: Negative Thrive Assessment: Date of Thrive Assessment Date Thrive assessed 08/24/24 08/24/24 14:51 Currently or been in a relationship where the following occur: No concerns reported Const Other: Appearance: Alert. Oriented X3. No acute distress. Head: Normal external exam. Normocephalic. Atraumatic. Eyes: Pupils are equal, round, and reactive to light. Extraocular movements intact. Conjunctiva and sclera normal. Eyelids normal. Glaucoma noted in the left eye. Ears: External auditory canal normal. Tympanic membranes normal. Throat: Pharynx normal. Uvula midline. Moist mucous membranes. Neck: Normal inspection. Neck supple. Full range of motion. No adenopathy. Thyroid Normal. No meningeal signs. No neck mass noted. Cardiovascular: Normal heart rate and rhythm. Heart sound normal. No murmurs noted. Pulses normal throughout. Respiratory: No respiratory distress. Painless inspiration. Breath sounds normal. No wheezes/rales/rhonchi noted. Chest nontender. No accessory muscle usage noted or decreased air movement noted. Abdomen: Soft and nontender. Bowel sounds normal in all 4 quadrants. No distention noted. No organomegaly noted. No visible injury noted. Back: No costovertebral angle tenderness. Full range of motion noted. Skin: Skin warm and dry. Normal skin color. Normal skin turgor. No rashes/lesions/lacerations noted. Extremities: No lower extremity edema. Extremities exhibit normal range of motion. Extremities nontender. Neuro: Oriented X 3. No motor deficit. No sensory deficit. Reflexes normal. Reports occasional dizziness, particularly after eating, possibly related to medication or vertigo. Patient has a normal steady gait with a normal neuro exam. Results Reviewed Results Reviewed: - Colonoscopy (2019): Normal findings. Coding Level of Care Code New Pt Level 4 (69323) Complex EM visit Add On G2211 Diagnoses Establishing care with new doctor, encounter for Z76. Glaucoma H40.9 BPH w urinary obs/LUTS N40.1; N13.8 Overactive bladder N32.81 Vertigo R42 Encounter for preventive care Z00.00 Additional Codes PHQ-9 - 14756 - PHQ-9 Billing: Yes ([id number]) CALEB-7 Assessment Billing - CALEB-7 Assessment Tool: CALEB-7 Assessment 11061 ([id number]) Assessment & Plan Assessment & Plan (1) Establishing care with new doctor, encounter for: Code(s): Z76.89 - Persons encountering health services in other specified circumstances Category: Medical (2) Glaucoma: Code(s): H40.9 - Unspecified glaucoma Category: Medical Plan: The patient manages glaucoma with multiple eye drops, including Timolol, for the left eye. Condition is chronic and stable will continue to monitor. (3) BPH w urinary obs/LUTS: Code(s): N40.1 - Benign prostatic hyperplasia with lower urinary tract symptoms; N13.8 - Other obstructive and reflux uropathy Category: Medical Plan: The patient is on finasteride for benign prostatic hyperplasia, with no reported complications. Condition is chronic and stable will continue to monitor. (4) Overactive bladder: Code(s): N32.81 - Overactive bladder Category: Medical Plan: Tolterodine is used to manage overactive bladder symptoms effectively. Condition is chronic and stable will continue to monitor. (5) Vertigo: Code(s): R42 - Dizziness and giddiness Category: Medical Plan: The patient experiences dizziness occasionally after meals, described as lightheadedness rather than vertigo. Previous ER visit for this issue resulted in ineffective medication. Condition is chronic and stable continue to monitor. (6) Encounter for preventive care: Code(s): Z00.00 - Encounter for general adult medical examination without abnormal findings Category: Medical Plan: The patient is due for a colonoscopy this year as part of routine preventative care, following a normal result in 2019. Condition is chronic and stable will continue to monitor. Plan Plan Patient was informed and verbally consented to the use of an ambient scribe for clinic note documentation during this visit. 1. Hypertension The patient's hypertension is managed with amlodipine and lisinopril, both at 10 mg doses, with no reported side effects such as leg swelling. 2. Glaucoma The patient manages glaucoma with multiple eye drops, including Timolol, for the left eye. 3. Benign Prostatic Hyperplasia The patient is on finasteride for benign prostatic hyperplasia, with no reported complications. 4. Overactive Bladder Tolterodine is used to manage overactive bladder symptoms effectively. 5. Dizziness The patient experiences dizziness occasionally after meals, described as lightheadedness rather than vertigo. Previous ER visit for this issue resulted in ineffective medication. 6. Preventative Care: Colonoscopy The patient is due for a colonoscopy this year as part of routine preventative care, following a normal result in 2019. I discussed with the patient the management of his hypertension with amlodipine and lisinopril, ensuring no side effects like leg swelling were present. We reviewed his glaucoma treatment with Timolol and the management of benign prostatic hyperplasia with finasteride. The patient was informed about the effectiveness of tolterodine for his overactive bladder symptoms. We discussed his dizziness, noting the previous ER visit and ineffective medication, and considered physical therapy as a potential option. I advised him on the upcoming colonoscopy as part of his preventative care plan. Medications: New acetaminophen ER (Tylenol Arthritis Pain) 1,300 mg (2 x 650 mg) PO Q12H 60 tabs 1RF Patient Instructions: - Continue taking amlodipine and lisinopril as prescribed for hypertension. - Use Timolol eye drops as directed for glaucoma. - Continue finasteride for benign prostatic hyperplasia. - Take tolterodine as prescribed for overactive bladder. - Schedule and attend the upcoming colonoscopy. - Consider physical therapy for dizziness if symptoms persist.
[2024-08-24 14:53] VITALS: BP 96/64; PULSE 71; RESP 16; TEMP 36.2; O2SAT 98; BMI 30.4
--- OUTSIDE RECORDS SUMMARY | 2024-08-24 15:14 | XMS_ITS | Clinical Summary ---
Author Organization [facility] Address [address] [place] [address] Phone Care Team Providers Care Assembler Product Name Role Phone Oneil Goel MD Primary Care Provider [phone] Allergies Active Allergy Reactions Criticality Noted Date Comments Naproxen Low 05/23/2020 nose bleed Medications acetaminophen (TYLENOL) 500 mg tablet Take 2 tablets (1,000 mg total) by mouth. 4 Active amLODIPine (NORVASC) 10 mg tablet Take 1 tablet (10 mg total) by mouth 1 (one) time each day. 2 Active brimonidine (ALPHAGAN P) 0.15 % ophthalmic solution Administer into affected eye(s). 5 Active dorzolamide-mino oloL (COSOPT) 22.3-6.8 mg/mL ophthalmic solution Administer into affected eye(s). 5 Active finasteride (PROSCAR) 5 mg tablet 5 Active lactulose (CHRONULAC) solution Take by mouth. 4 Active lisinopriL (PRINIVIL,ZESTR IL) 10 mg tablet Take 1 tablet (10 mg total) by mouth 1 (one) time each day. 2 Active tamsulosin (FLOMAX) 0.4 mg 24 hr capsule Take 1 capsule (0.4 mg total) by mouth. 9 Active tolterodine LA (DETROL LA) 4 mg 24 hr capsule Take 1 capsule (4 mg total) by mouth. 4 Active Active Problems Problem Noted Date Diagnosed Date Lumbar stenosis with neurogenic claudication Assessment & Plan (07/31/2024 1:23 PM EDT): I discussed the imaging in detail with Mr. Kebede using a spine model and he understood that it was similar to his previous scan, noting the moderate stenosis at L4-5. I believe his symptoms of claudication have worsened over the years and now he does feel limited with walking, needs to take frequent breaks sitting and is not seeing improvement from the chiropractor. I believe he will always have some chronic low back pain given the extensive degenerative changes at the other levels though L3-4 is autofusing and should become less of a pain generator. I believe he will see some improvements in the back pain with walking and the paresthesias in his legs with an L4-5 decompression. We discussed the details, risks, benefits and anticipated postoperative course. All questions were answered and he would like to proceed in the Fall when he he does not have to mow the lawn so often. Encounters Date Type Department Care Team Description 07/31/2024 10:15 AM EDT Office Visit [facility] [address] [place] [address] Sheryl Pugh MD Lumbar stenosis with neurogenic claudication (Primary Dx) 07/04/2024 5:32 PM EDT - 07/04/2024 10:31 PM EDT Emergency [facility] Emergency [address] [place] [id number] Italo Samayoa MD Dizziness (Primary Dx) Discharge Disposition: Home or Self Care from Last 3 Months Surgical History Surgery Date Site/Laterality Comments OTHER SURGICAL HISTORY Left PROCEDURE: TX RMVL SEC MEMBRANOUS CTRC CORNEO-SCLL SCTJ HERNIA REPAIR PROCEDURE: TX RPR 1ST INGUN HRNA AGE 5 MO-5 YRS REDUCIBLE CHOLECYSTECTOMY PROCEDURE: TX LAPAROSCOPY SURG CHOLECYSTECTOMY Medical History Medical History Date Comments Essential hypertension DX:Essent ial hypertension Glaucoma DX:Glaucoma Arthritis DX:Arthritis Social History Tobacco Use Types Packs/Day Years Used Date Smoking Tobacco: Never Smokeless Tobacco: Never Alcohol Use Standard Drinks/Week Comments Not Currently 0 (1 standard drink = 0.6 oz pur e alcohol) Sex and Gender Information Value Date Recorded Sex Assigned at Not on file Legal Sex Male 10:06 AM EST Gender Identity Not on file Sexual Orientation Not on file Obstetrics History Last Filed Vital Signs Vital Sign Reading Time Taken Comments Blood Pressure 135/96 07/04/2024 10:19 PM EDT Pulse 65 07/04/2024 10:19 PM EDT Temperature 36.3 C (97.4 F) 07/04/2024 10:19 PM EDT Respiratory Rate 18 07/04/2024 10:19 PM EDT Oxygen Saturation 99% 07/04/2024 10:19 PM EDT Inhaled Oxygen Concentration - - Weight 90.7 kg (200 lb) 07/31/2024 10:51 AM EDT Height 180.3 cm (5' 11 ) 07/31/2024 10:51 AM EDT Body Mass Index 27.89 07/31/2024 10:51 AM EDT Plan of Treatment Health Maintenance Due Date Last Done Comments Pneumococcal Vaccine: 50+ Years (2 of 2 - PPSV23) 08/03/2015 08/02/2014, 08/09/2010 Cholesterol Screening (Lipid Panel) 01/21/2022 Depression Screening 01/21/2022 Falls Risk Assessment 01/21/2022 Medicare Annual Wellness Visit 01/21/2022 Social Influencers of Health Screening 01/21/2022 COVID-19 Vaccine ( season) 2024 11/08/2023, 11/09/2022, 11/07/2021, Additional history exists Influenza Vaccine (#1) 2024 , 10/18/2023, 11/18/2022, Additional history exists Hypertension/CHF/CAD Annual BMP Blood Test 07/04/2025 07/04/2024, 04/23/2024 DTaP,Tdap,and Td Vaccines (3 - Td or Tdap) 10/31/2030 10/31/2020, 08/09/2010 Zoster Vaccines Completed 06/29/2020, 10/19, 11/09/2011 RSV Immunization Adult Patients Completed 12/02/2022 HIB Vaccines Aged Out No longer eligi ble based on patient's age to complete this topic HPV Vaccines Aged Out No longer eligi ble based on patient's age to complete this topic Hepatitis A Vaccines Aged Out No long er eligible based on patient's age to complete this topic Hepatitis B Vaccines Aged Out No long er eligible based on patient's age to complete this topic IPV Vaccines Aged Out No longer eligi ble based on patient's age to complete this topic MMR Vaccines Aged Out No longer eligi ble based on patient's age to complete this topic Meningococcal ACWY Vaccine Aged Out N o longer eligible based on patient's age to complete this topic Meningococcal B Vaccine Aged Out No l onger eligible based on patient's age to complete this topic RSV Immunization Patients Under 20 months Aged Out No longer eligible based on patient's age to complete this topic Varicella Vaccines Aged Out No longer eligible based on patient's age to complete this topic Procedures Procedure Name Priority Date/Time Associated Diagnosis Comments ECG ANNOTATED 07/05/2024 POCT GLUCOSE BLOOD Routine 07/04/2024 7: [address] HEAD WO CONTRAST STAT 07/04/2024 7 :28 PM EDT ECG 12-LEAD Routine 07/04/2024 6:42 PM EDT TROPONIN I HIGH SENSITIVITY STAT 07/04/2024 6:29 PM EDT FRASER URINE CULTURE TUBE STAT 07/04/2024 6:09 PM EDT URINALYSIS WITH REFLEX MICROSCOPIC AND CULTURE STAT 07/04/2024 6:09 PM EDT URINALYSIS WITH REFLEX MICROSCOPIC AND CULTURE STAT 07/04/2024 6:09 PM EDT ECG 12-LEAD STAT 07/04/2024 5:30 PM EDT CBC WITH AUTO DIFFERENTIAL STAT 07/04/2024 5:21 PM EDT TROPONIN I HIGH SENSITIVITY STAT 07/04/2024 5:21 PM EDT MAGNESIUM STAT 07/04/2024 5:21 PM EDT BASIC METABOLIC PANEL STAT 07/04/2024 5:21 PM EDT CBC AND DIFFERENTIAL STAT 07/04/2024 5:21 PM EDT from Last 3 Months Results * ECG-Annotated (07/05/2024) us Provider Onbase MD ECG ORDERABLES Final Result * (ABNORMAL) POCT Glucose, blood (07/04/2024 7:51 PM EDT) Glucose POCT 101(H) 70 - 100 mg/dL 07/04/2024 7:51 PM EDT [facility] Blood Capillary blood specimen / Unknown 07/04/2024 7:51 PM EDT 07/04/2024 7:52 PM EDT Italo Samayoa MD LAB POINT OF CARE TE ST DOCKED DEVICE UNSOLICITED RESULTS Final Result [facility] [address] [place] [address], [place] [phone] * CT Head wo Contrast (07/04/2024 7:28 PM EDT) Anatomical Region Laterality Modality Head and Neck Computed Tomogra phy 07/04/2024 7:49 PM EDT Impressions 07/04/2024 7:49 PM EDT Impression: 1. No acute intracranial abnormalities. This document has been electronically signed by: Armen Mojica MD on 07/04/2024 19:49:51 Narrative 07/04/2024 7:49 PM EDT INDICATION: Dizziness, non-specific CT head without contrast Comparison: None Findings: No intracranial mass, midline shift, hydrocephalus, or acute hemorrhage. No CT evidence of acute ischemia. Visualized paranasal sinuses and mastoid air cells normal. Orbits unremarkable. No skull fracture Procedure Note Armen Mojica MD - 07/04/2024 INDICATION: Dizziness, non-specific CT head without contrast Comparison: None Findings: No intracranial mass, midline shift, hydrocephalus, or acute hemorrhage. No CT evidence of acute ischemia. Visualized paranasal sinuses and mastoid air cells normal. Orbits unremarkable. No skull fracture IMPRESSION: Impression: 1. No acute intracranial abnormalities. This document has been electronically signed by: Armen Mojica MD on 07/04/2024 19:49:51 Italodaisy Samayoa MD IMG CT PROCEDURES Final Result * ECG 12 lead (07/04/2024 6:42 PM EDT) Only the most recent of2 resultswithin the time period is included. Ventricular Rate ECG 68 BPM GEMUSE Atrial Rate 68 BPM GEMUSE P-R Interval 166 ms GEMUSE QRS Duration 74 ms GEMUSE Q-T Interval 402 ms GEMUSE QTc 427 ms GEMUSE P Wave [place] 51 degrees GEMUSE R [place] 19 degrees GEMUSE T [place] 27 degrees GEMUSE ECG Interpretation Sinus rhythm with occasional Premature ventricular complexes Otherwise normal ECG When compared with ECG of 04-JUL-2024 17:30, No significant change was found Confirmed by NOEMI RIDER ([id number]) on 07/05/2024 8:46:49 PM GEMUSE 07/04/2024 6:42 PM EDT 07/05/2024 8:46 PM EDT Italo Samayoa MD ECG ORDERABLES Final Result GEMUSE * Troponin I high sensitivity (07/04/2024 6:29 PM EDT) Only the most recent of2 resultswithin the time period is included. High Sensitivity Troponin I 8 <=79 ng/L LAB CHEMISTRY METHOD 07/04/2024 7:19 PM EDT [facility] Blood Venous blood specimen / Unknown Venipuncture / Unknown 07/04/2024 6:29 PM EDT 07/04/2024 6:51 PM EDT Narrative [facility] - 07/04/2024 7:19 PM EDT High levels of biotin in samples may falsely decrease hsTroponin values. Use caution when interpreting hsTroponin results in patients taking biotin who exhibit renal impairment (eGFR <60) or in patients taking more than 20 mg/day of biotin. us [facility] Elena Samayoa MD LAB BLOOD ORDERABLES Final Resu lt [facility] [address] [place] [address], [place] [phone] * Urinalysis with reflex microscopic and culture (07/04/2024 6:09 PM EDT) Specific [place] Urine 1.011 1.003 - 1.030 LAB URINALYSIS - AUTOMATED METHOD 07/04/2024 6:46 PM EDT [facility] pH, Urine 7.0 5.0 - 8.0 pH LAB URINALYSIS - AUTOMATED METHOD 07/04/2024 6:46 PM EDT [facility] Leukocytes, Urine Negative Negative LAB URINALYSIS - AUTOMATED METHOD 07/04/2024 6:[facility] Nitrite, Urine Negative Negative LAB URINALYSIS - AUTOMATED METHOD 07/04/2024 6:46 PM EDT [facility] Protein, Urine Negative <=Trace mg/dL LAB URINALYSIS - AUTOMATED METHOD 07/04/2024 6:46 PM EDT [facility] Glucose, Urine Negative Negative mg/dL LAB URINALYSIS - AUTOMATED METHOD 07/04/2024 6:46 PM EDT [facility] Ketones, Urine Negative Negative mg/dL LAB URINALYSIS - AUTOMATED METHOD 07/04/2024 6:46 PM EDT [facility] Urobilinogen, Urine 0.2 0.2 - 1.0 mg/dL LAB URINALYSIS - AUTOMATED METHOD 07/04/2024 6:46 PM EDT [facility] Bilirubin, Urine Negative Negative LAB URINALYSIS - AUTOMATED METHOD 07/04/2024 6:46 PM EDT [facility] Blood, Urine Negative Negative LAB URINALYSIS - AUTOMATED METHOD 07/04/2024 6:46 PM EDT [facility] Urine Urine specimen obtained by clean catch procedure / Unknown Non-blood Collection / Unknown 07/04/2024 6:09 PM EDT 07/04/2024 6:22 PM EDT [facility] Yao SOTO LAB URINE ORDERABLES Final Resu lt Performing Organization Address City/[facility]/ZIP Co de Phone Number [facility] [address] [place] [address], [place] [phone] * Fraser urine culture tube (07/04/2024 6:09 PM EDT) Extra Tube Hold for add-ons. 07/04/2024 8:01 PM EDT [facility] Comment:Auto resulted. Urine Urine specimen obtained by clean catch procedure / Unknown Non-blood Collection / Unknown 07/04/2024 6:09 PM EDT 07/04/2024 6:22 PM EDT [facility] LAB URINE ORDERABLES Final Resu lt Performing Organization Address City/[facility]/ZIP Co de Phone Number [facility] [address] [place] [address], [place] [phone] * (ABNORMAL) CBC auto differential (07/04/2024 5:21 PM EDT) WBC 6.9 4.8 - 10.8 K/[facility] LAB HEMETOLOGY METHOD 07/04/2024 6:04 PM EDT [facility] RBC 4.90 4.50 - 5.50 M/[facility] LAB HEMETOLOGY METHOD 07/04/2024 6:04 PM [facility] Hemoglobin 14.2 13.5 - 17.5 g/dL LAB HEMETOLOGY METHOD 07/04/2024 6:04 PM [facility] Hematocrit 46.6 42.0 - 54.0 % LAB HEMETOLOGY METHOD 07/04/2024 6:04 PM [facility] MCV 94.7 79.0 - 98.0 FL LAB HEMETOLOGY METHOD 07/04/2024 6:04 PM [facility] MCH 28.9 27.0 - 32.0 pcg LAB HEMETOLOGY METHOD 07/04/2024 6:04 PM [facility] MCHC 30.5(L) 32.0 - 37.0 g/dL LAB HEMETOLOGY METHOD 07/04/2024 6:04 PM [facility] RDW 11.9 11.0 - 15.0 % LAB HEMETOLOGY METHOD 07/04/2024 6:04 PM [facility] Platelets 169 130 - 400 K/mcL LAB HEMETOLOGY METHOD 07/04/2024 6:04 PM [facility] MPV 10.7 7.0 - 11.0 FL LAB HEMETOLOGY METHOD 07/04/2024 6:04 PM [facility] NRBC 0.0 <1.0 % LAB HEMETOLOGY METHOD 07/04/2024 6:04 PM [facility] NRBC Absolute 0.00 <0.10 K/mcL LAB HEMETOLOGY METHOD 07/04/2024 6:04 PM [facility] Neutrophils Relative 65.4 % LAB HEMETOLOGY METHOD 07/04/2024 6:04 PM [facility] Lymphocytes Relative 25.7 % LAB HEMETOLOGY METHOD 07/04/2024 6:04 PM [facility] Monocytes Relative 7.4 % LAB HEMETOLOGY METHOD 07/04/2024 6:04 PM EDT [facility] Eosinophils Relative 0.9 % LAB HEMETOLOGY METHOD 07/04/2024 6:04 PM EDT [facility] Basophils Relative 0.3 % LAB HEMETOLOGY METHOD 07/04/2024 6:04 PM EDT [facility] Immature Granulocytes Relative 0.3 % LAB HEMETOLOGY METHOD 07/04/2024 6:04 PM EDT [facility] Neutrophils Absolute 4.53 1.50 - 7.00 K/mcL LAB HEMETOLOGY METHOD 07/04/2024 6:04 PM EDT [facility] Lymphocytes Absolute 1.78 1.00 - 5.00 K/mcL LAB HEMETOLOGY METHOD 07/04/2024 6:04 PM EDT [facility] Monocytes Absolute 0.51 0.20 - 1.00 K/mcL LAB HEMETOLOGY METHOD 07/04/2024 6:04 PM EDT [facility] Eosinophils Absolute 0.06 0.00 - 0.50 K/mcL LAB HEMETOLOGY METHOD 07/04/2024 6:04 PM EDT [facility] Basophils Absolute 0.02 0.00 - 0.20 K/mcL LAB HEMETOLOGY METHOD 07/04/2024 6:04 PM EDT [facility] Immature Granulocytes Absolute 0.02 0.00 - 0.03 K/mcL LAB HEMETOLOGY METHOD 07/04/2024 6:04 PM EDT [facility] Blood Venous blood specimen / Unknown 07/04/2024 5:21 PM EDT 07/04/2024 5:58 PM EDT us Italo B Yao SOTO LAB BLOOD ORDERABLES Final Resu lt [facility] [address] [place] [address], [place] [phone] * Magnesium (07/04/2024 5:21 PM EDT) [facility] Magnesium 2.3 1.9 - 2.6 mg/dL LAB CHEMISTRY METHOD 07/04/2024 6:43 PM EDT [facility] Blood Venous blood specimen / Unknown 07/04/2024 5:21 PM EDT 07/04/2024 5:58 PM EDT us Italo B Yao SOTO LAB BLOOD ORDERABLES Final Resu lt [facility] [address] [place] [address], [place] [phone] * (ABNORMAL) Basic metabolic panel (07/04/2024 5:21 PM EDT) [facility] Sodium 136 133 - 145 mmol/L LAB CHEMISTRY METHOD 07/04/2024 6:43 PM EDT [facility] Potassium 4.2 3.5 - 5.5 mmol/L LAB CHEMISTRY METHOD 07/04/2024 6:43 PM [facility] Chloride 107 96 - 110 mmol/L LAB CHEMISTRY METHOD 07/04/2024 6:43 PM [facility] CO2 23 21 - 32 mmol/L LAB CHEMISTRY METHOD 07/04/2024 6:43 PM [facility] Anion Gap 6 3 - 11 LAB CHEMISTRY METHOD 07/04/2024 6:43 PM [facility] Glucose 118(H) 70 - 100 mg/dL LAB CHEMISTRY METHOD 07/04/2024 6:43 PM [facility] BUN 13 5 - 25 mg/dL LAB CHEMISTRY METHOD 07/04/2024 6:43 PM [facility] Creatinine 0.82 0.70 - 1.30 mg/dL LAB CHEMISTRY METHOD 07/04/2024 6:43 PM EDT [facility] eGFR 89 >=60 mL/min/1. 73m2 LAB CHEMISTRY METHOD 07/04/2024 6:43 PM EDT [facility] Comment:Calculation based on the Chronic Kidney Disease Epidemiology Collaboration (CKD-EPI) equation refit without adjustment for race. BUN/Creatinine Ratio 15.9 LAB CHEMISTRY METHOD 07/04/2024 6:43 PM EDT [facility] Calcium 9.5 8.5 - 10.5 mg/dL LAB CHEMISTRY METHOD 07/04/2024 6:43 PM EDT [facility] Blood Venous blood specimen / Unknown 07/04/2024 5:21 PM EDT 07/04/2024 5:58 PM EDT Italo Elena Samayoa MD LAB BLOOD ORDERABLES Final Resu lt [facility] [address] [place] [address], from Last 3 Months Insurance [employer] MEDICARE Care Teams Assembler Product Relationship Specialty Start Date End Date Oneil Goel MD [address] [place] [address] PCP - General Internal Medicine 08/23/21
--- OUTSIDE RECORDS SUMMARY | 2024-08-24 15:14 | XMS_ITS | Patient Health Record ---
Author Organization [facility] Address [address] [place] [id number] Care Team Providers Care Clinical Nurse Occupational Medicine Name Role Phone Jasen Clark Unavailable [phone] Reason For Referral No Information Plan Of Treatment No Information
--- OUTSIDE RECORDS SUMMARY | 2024-08-24 15:14 | XMS_ITS | Clinical Summary ---
Author Organization [facility] Address [address] [place] [address] Care Team Providers Care Health Information Management Director Name Role Phone Oneil Goel MD Primary Care Provider [phone] Social History Tobacco Use Types Packs/Day Years Used Date Smoking Tobacco: Never Assessed Sex and Gender Information Value Date Recorded Sex Assigned at Not on file Gender Identity Not on file Sexual Orientation Not on file Job Start Date Occupation Industry Not on file Not on file Not on file Plan of Treatment Health Maintenance Due Date Last Done Comments COVID-19 Vaccine (#1) 1944 Depression Screening 1956 Preventative Health Evaluation 1962 DTap / Tdap / Td (1 - Tdap) 06/09/1963 Shingrix-Zoster Vaccine (1 of 2) 1994 Fall Risk Assessment 2009 Pneumococcal Vaccine (1 of 1 - PCV) 2009 RSV Adult > 60+ Yrs or Pregn ant (1 - 1-dose 75+ series) 06/09/2019 Influenza Vaccine (#1) 2024 Hepatitis B Vaccines Aged Out No long er eligible based on patient's age to complete this topic RSV Ped < 20 months Aged Out No longe r eligible based on patient's age to complete this topic Care Teams Health Information Management Director Relationship Specialty Start Date End Date Oneil Goel MD [address] [place] [address] PCP - General Internal Medicine 01/04/20
== END 2024-08-24 15:36 | disposition home or self-care (01) ==
LOC: HO.HMCSH 14:44
PROVIDERS: PCP Internal Medicine; Visit Provider Physician Assistant Medical
DX: Z76.89 Persons encountering health services in other specified circumstances (principal); H40.9 Unspecified glaucoma; N40.1 Benign prostatic hyperplasia with lower urinary tract symptoms; N13.8 Other obstructive and reflux uropathy; N32.81 Overactive bladder; R42 Dizziness and giddiness; Z00.00 Encounter for general adult medical examination without abnormal findings

== ENCOUNTER → 2024-08-24 14:44 | Outpatient (BNVA) | payer MEDICARE, SELFPAY | PROVIDERS: PCP Internal Medicine; Visit Provider Physician Assistant Medical | DX: Z00.00 Encounter for general adult medical examination without abnormal findings (principal); Z76.89 Persons encountering health services in other specified circumstances; H40.9 Unspecified glaucoma; N40.1 Benign prostatic hyperplasia with lower urinary tract symptoms; N13.8 Other obstructive and reflux uropathy; N32.81 Overactive bladder; R42 Dizziness and giddiness | CPT/HCPCS: 96127; 99202 ==

== ENCOUNTER 2024-09-21 10:32 | Outpatient (AMB) | payer MEDICARE, SELFPAY ==
--- NOTE | 2024-09-21 10:37 | A.OFFVIS_ITS ---
Vital Signs 09/21/24 10:45 Height 5 ft 8 in Weight 200 lb BMI 30.4 BP 112/68 Blood Pressure Location Rt brachial Position Sitting Pulse 70 Pulse Source Pulse Oximeter Pulse Oximetry (%) 98 Oxygen Delivery Method Room Air Intake Visit Reasons: constipation Intake Note: New pt for initial eval of constipation. CC; C.O. difficulty with managing BMs. Pt states he is having difficulty with constipation and diarrhea intermittently. Pt denies any bleeding at this time. Pt states that his suppositories usually help but did not help this time. Last colo 5 years ago. Pt states he is due. Study Coordinator Required: No Accompanied by: Self / Same As Patient Allergies No Known Allergies Allergy (Verified 09/21/24 10:37) HPI HPI constipation: Details: 79 year old? male with past medical history BPH, vertigo, hypertension is here today for pre colonoscopy screening.? Patient was sent to us by his PCP.? Last colonoscopy in August of 2019, one hyperplastic polyp and one tubular adenoma found. Recommendation was for 5 year follow-up.? ? Denies any family history of gastrointestinal disease or CRC.? Patient reports constipation. Lactulose was not working for him. Usually if no bowel movement for 1-2 days patient with take milk of magnesia with some results. Patient was taking stool softeners in the past with no results. Denies any melena, hematochezia, unintentional weight loss or ribbon like stools. Denies history of difficulty with sedation or anesthesia in the past.? Negative for history of sleep apnea.? Denies any history of cardiac, renal, pulmonary, or hepatic disease.?? No history of infectious? diseases like hepatitis A, B, C, HIV or tuberculosis.? Patient is not on any anticoagulation [facility] Medical History Encounter for preventive care Vertigo Glaucoma Establishing care with new doctor, encounter for Arthritis Bilateral inguinal hernia Bilateral open angle glaucoma Benign essential HTN Chronic constipation Colon polyps Surgical History (Updated 09/21/24 @ 10:41 by KASANDRA Lau) Hx of cholecystectomy History of colonoscopy (~09/03/19) History of surgery Family History Father No problems noted. Mother Diabetes High blood pressure Social History Housing: House Alcohol intake: current Alcohol intake frequency: does not drink Patient Tobacco Use Status: Former Tobacco user service: Yes Current occupational status: retired Cognitive needs: No Hearing needs: No Vision needs: Yes (rx glasses) Review of Systems Const Denies weight gain and Denies weight loss ENT Reports no additional complaints, Denies dysphagia and Denies odynophagia Card Reports no additional complaints Resp Reports no additional complaints GI Denies abdominal pain, Denies belching, Denies melena, Denies bloating, Denies change in bowel habits, Denies dysphagia, Denies excessive flatus, Denies dyspepsia, Denies heartburn, Denies diarrhea, Denies loose stools, Denies nausea, Denies odynophagia and Denies vomiting Reports no additional complaints Musc Reports no additional complaints Neuro Reports no additional complaints Psych Reports no additional complaints Endo Reports no additional complaints Physical Exam Vital Signs: Last Vital Signs Pulse 70 09/21/24 10:45 BP 112/68 09/21/24 10:45 Pulse Ox 98 09/21/24 10:45 Oxygen Delivery Method Room Air 09/21/24 10:45 BMI result Body Mass Index 30.4 Const General: healthy appearing, no acute distress and well developed Nutritional Appearance: well nourished and obese Orientation/consciousness: patient oriented x3 Resp Effort & Inspection: normal respiratory effort, able to speak in complete sentences, no tracheal deviation and symmetric chest movement Auscultation: clear to auscultation bilaterally Cardio Rate: regular rate GI Inspection: Yes normal to inspection and No distended Palpation (GI): Soft to palpation, not firm, nontender and No hepatosplenomegaly present Auscultation: normal bowel sounds General: Yes no CVA tenderness Back/Spine/Pelvis Back: no CVA tenderness Skin General skin exam: elasticity normal, turgor normal and dry skin Neuro General: patient oriented x3 Psych Appearance: grossly normal Mental Status: mental status grossly normal Assessment & Plan Assessment & Plan (1) Screen for colon cancer: Code(s): Z12.11 - Encounter for screening for malignant neoplasm of colon Plan Patient denies any cardiac or respiratory symptoms. Patient reports constipation. Uses milk of magnesia if no bowel movement in 1-2 days. Patient reports that he feels like milk of magnesium no longer is working for him. It took stool softeners in the past without any results. Patient will start taking Dulcolax daily. He will call if he will have no results.? Denies any issues with anesthesia in the past.? Denies any history of sleep apnea.? No history infectious diseases in the past or present.? Not on any anticoagulation therapy.? No family or personal history of colon cancer or polyps.? Patient denies melena, hematochezia, unintentional weight loss or ribbon like stools.? Discussed at length the pre-procedure,? prep, diet & medications as well as what to expect prior, during and after the procedure.?? Stressed the importance of good bowel prep.? Recommended the use of Vaseline or Calmoseptine OTC & baby wipes with bowel movements to promote comfort.? ?Patient verbalizes understanding and agrees to plan of care.? He was given the opportunity to ask questions and all questions answered.? We will see him after the procedure.? Medications: New bisacodyl (Dulcolax (bisacodyl)) 10 mg (2 x 5 mg) PO BEDTIME 180 tabs 4RF polyethylene glycol 3350 (Miralax) As directed by gastroenterology department at [facility] 238 grams PO ONCE 238 grams 0RF Z12.11 - Encounter for screening for malignant neoplasm of colon Coding Level of Care Code New Pt Level 3 (46432) Diagnoses Screen for colon cancer Z12.11 Time Spent (min) 40 Comment 30 minutes spent with patient and additional 10 minutes spent reviewing his records
[2024-09-21 10:45] VITALS: BP 112/68; PULSE 70; O2SAT 98; BMI 30.4
--- OUTSIDE RECORDS SUMMARY | 2024-09-21 11:16 | XMS_ITS | Patient Health Record ---
Author Organization [facility] Address [address] [place] [id number] Care Team Providers Care Gauge Maker Apprentice Name Role Phone Jasen Clark Unavailable [phone] Reason For Referral No Information Plan Of Treatment No Information
--- OUTSIDE RECORDS SUMMARY | 2024-09-21 11:16 | XMS_ITS | Clinical Summary ---
Author Organization [facility] Address [address] [place] [address] Care Team Providers Care It Security Specialist Name Role Phone Oneil Goel MD Primary Care Provider [phone] Social History Tobacco Use Types Packs/Day Years [...] age to complete this topic Care Teams It Security Specialist Relationship Specialty Start Date End Date Oneil Goel MD [address] [place] [address] PCP - General Internal Medicine 01/04/20
--- OUTSIDE RECORDS SUMMARY | 2024-09-21 11:16 | XMS_ITS | Clinical Summary ---
Author Organization [facility] Address [address] [place] [address] Phone Care Team Providers Care Director Surface Transportation Name Role Phone Oneil Goel MD Primary Care Provider Allergies Active Allergy Reactions Criticality Noted Date [...] 07/31/2024 10:15 AM EDT Office Visit Neurosurgery [facility] [address] [place] [address] Sheryl Pugh MD Lumbar stenosis with neurogenic claudication (Primary Dx) 07/04/2024 5:32 PM EDT - 07/04/2024 10:31 PM EDT Emergency [facility] Emergency [address] [place] [id number] Italo Samayoa MD Dizziness (Primary Dx) Discharge Disposition: Home or Self Care from Last 3 Months Surgical History Surgery Date Site/Laterality Comments OTHER SURGICAL HISTORY Left PROCEDURE: DC RMVL SEC MEMBRANOUS CTRC CORNEO-SCLL SCTJ HERNIA REPAIR PROCEDURE: DC RPR 1ST INGUN HRNA AGE 5 MO-5 YRS REDUCIBLE CHOLECYSTECTOMY PROCEDURE: DC LAPAROSCOPY SURG CHOLECYSTECTOMY Medical History Medical History [...] 08/02/2014, 08/09/2010 Cholesterol Screening (Lipid Panel) 01/21/2022 Falls Risk Assessment 01/21/2022 Medicare Annual Wellness Visit 01/21/2022 Social Influencers of Health Screening 01/21/2022 Depression Screening 02/19/2024 COVID-19 Vaccine ( season) 2024 11/08/2023, 11/09/2022, [...] - 100 mg/dL 07/04/2024 7:[address] [facility] Blood Capillary blood specimen / Unknown 07/04/2024 7:51 PM EDT 07/04/2024 7:52 PM EDT Italo Samayoa MD LAB POINT OF CARE TE ST DOCKED DEVICE UNSOLICITED RESULTS Final Result [facility] [address] [place] [address], [place] [phone] * CT Head wo Contrast (07/04/2024 7:28 [...] GEMUSE QTc 427 ms GEMUSE P Wave Maxwell 51 degrees GEMUSE R Maxwell 19 degrees GEMUSE T Maxwell 27 degrees GEMUSE ECG Interpretation Sinus rhythm [...] LAB CHEMISTRY METHOD 07/04/2024 7:[address] [facility] Blood Venous blood specimen / Unknown Venipuncture / Unknown 07/04/2024 6:29 PM EDT 07/04/2024 6:[address] [facility] - 07/04/2024 7:19 PM EDT High levels of biotin in samples may falsely decrease hsTroponin values. Use caution when interpreting hsTroponin results in patients taking biotin who exhibit renal impairment (eGFR <60) or in patients taking more than 20 mg/day of biotin. us [facility] Elena Samayoa MD LAB BLOOD ORDERABLES Final Resu lt [facility] [address] [place] [address], [place] [phone] * Urinalysis with reflex microscopic and culture (07/04/2024 6:09 PM EDT) Specific [place] Urine 1.011 1.003 - 1.030 LAB URINALYSIS - AUTOMATED METHOD 07/04/2024 6:[address] [facility] pH, Urine 7.0 5.0 - 8.0 pH LAB URINALYSIS - AUTOMATED METHOD 07/04/2024 6:[address] [facility] Leukocytes, Urine Negative Negative LAB URINALYSIS - AUTOMATED METHOD [facility] N[facility], Urine Negative Negative LAB URINALYSIS - AUTOMATED METHOD 07/04/2024 6:[address] [facility] Protein, Urine Negative <=Trace mg/dL LAB URINALYSIS - AUTOMATED METHOD 07/04/2024 6:[address] [facility] Glucose, Urine Negative Negative mg/dL LAB URINALYSIS - AUTOMATED METHOD 07/04/2024 6:[address] [facility] Ketones, Urine Negative Negative mg/dL LAB URINALYSIS - AUTOMATED METHOD 07/04/2024 6:[address] [facility] Urobilinogen, Urine 0.2 0.2 - 1.0 mg/dL LAB URINALYSIS - AUTOMATED METHOD 07/04/2024 6:[address] [facility] Bilirubin, Urine Negative Negative LAB URINALYSIS - AUTOMATED METHOD 07/04/2024 6:[address] [facility] Blood, Urine Negative Negative LAB URINALYSIS - AUTOMATED METHOD 07/04/2024 6:[address] [facility] Urine Urine specimen obtained by clean catch procedure / Unknown Non-blood Collection / Unknown 07/04/2024 6:09 PM EDT 07/04/2024 6:22 PM EDT [facility] Yao SOTO LAB URINE ORDERABLES Final Resu lt Performing Organization Address City/[facility]/ZIP Co de Phone Number [facility] [address] [place] [address], [place] [phone] * Fraser urine culture tube (07/04/2024 6:09 PM EDT) Extra Tube Hold for add-ons. 07/04/2024 8:[address] [facility] Comment:Auto resulted. Urine Urine specimen obtained by clean catch procedure / Unknown Non-blood Collection / Unknown 07/04/2024 6:09 PM EDT 07/04/2024 6:22 PM [facility]T [facility] LAB URINE ORDERABLES Final Resu lt Performing Organization Address City/[facility]/ZIP Co de Phone Number [facility] [address] [place] [address], [place] [phone] * (ABNORMAL) CBC auto differential (07/04/2024 5:21 PM EDT) WBC 6.9 4.8 - 10.8 K/[facility] LAB HEMETOLOGY METHOD 07/04/2024 6:[address] [facility] RBC 4.90 4.50 - 5.50 M/[facility] LAB HEMETOLOGY METHOD 07/04/2024 6:04 PM [facility] Hemoglobin 14.2 13.5 - 17.5 g/dL LAB HEMETOLOGY METHOD 07/04/2024 6:04 PM [facility] Hematocrit 46.6 42.0 - 54.0 % LAB HEMETOLOGY METHOD 07/04/2024 6:04 PM [facility] MCV 94.7 79.0 - 98.0 FL LAB HEMETOLOGY METHOD 07/04/2024 6:04 PM [facility] MCH 28.9 27.0 - 32.0 pcg LAB HEMETOLOGY METHOD 07/04/2024 6:04 PM [facility] MCHC 30.5(L) 32.0 - 37.0 g/dL LAB HEMETOLOGY METHOD 07/04/2024 6:04 PM [facility] RDW 11.9 11.0 - 15.0 % LAB HEMETOLOGY METHOD 07/04/2024 6:04 PM [facility] Platelets 169 130 - 400 K/mcL LAB HEMETOLOGY METHOD 07/04/2024 6:04 PM [facility] MPV 10.7 7.0 - 11.0 FL LAB HEMETOLOGY METHOD 07/04/2024 6:04 PM [facility] NRBC 0.0 <1.0 % LAB HEMETOLOGY METHOD 07/04/2024 6:04 PM [facility] NRBC Absolute 0.00 <0.10 K/mcL LAB HEMETOLOGY METHOD 07/04/2024 6:04 PM [facility] Neutrophils Relative 65.4 % LAB HEMETOLOGY METHOD 07/04/2024 6:04 PM [facility] Lymphocytes Relative 25.7 % LAB HEMETOLOGY METHOD 07/04/2024 6:04 PM [facility] Monocytes Relative 7.4 % LAB HEMETOLOGY METHOD 07/04/2024 6:[address] [facility] Eosinophils Relative 0.9 % LAB HEMETOLOGY METHOD 07/04/2024 6:[address] [facility] Basophils Relative 0.3 % LAB HEMETOLOGY METHOD 07/04/2024 6:[address] [facility] Immature Granulocytes Relative 0.3 % LAB HEMETOLOGY METHOD 07/04/2024 6:[address] [facility] Neutrophils Absolute 4.53 1.50 - 7.00 K/mcL LAB HEMETOLOGY METHOD 07/04/2024 6:[address] [facility] Lymphocytes Absolute 1.78 1.00 - 5.00 K/mcL LAB HEMETOLOGY METHOD 07/04/2024 6:[address] [facility] Monocytes Absolute 0.51 0.20 - 1.00 K/mcL LAB HEMETOLOGY METHOD 07/04/2024 6:[address] [facility] Eosinophils Absolute 0.06 0.00 - 0.50 K/mcL LAB HEMETOLOGY METHOD 07/04/2024 6:[address] [facility] Basophils Absolute 0.02 0.00 - 0.20 K/mcL LAB HEMETOLOGY METHOD 07/04/2024 6:[address] [facility] Immature Granulocytes Absolute 0.02 0.00 - 0.03 K/mcL LAB HEMETOLOGY METHOD 07/04/2024 6:[address] [facility] Blood Venous blood specimen / Unknown 07/04/2024 5:21 PM EDT 07/04/2024 5:58 PM EDT us Italo B Yao SOTO LAB BLOOD ORDERABLES Final Resu lt [facility] [address] [place] [address], [place] [phone] * Magnesium (07/04/2024 5:21 PM EDT) [facility] Magnesium 2.3 1.9 - 2.6 mg/dL LAB CHEMISTRY METHOD 07/04/2024 6:[address] [facility] Blood Venous blood specimen / Unknown 07/04/2024 5:21 PM EDT 07/04/2024 5:58 PM EDT us Italo B Yao SOTO LAB BLOOD ORDERABLES Final Resu lt [facility] [address] [place] [address], [place] [phone] * (ABNORMAL) Basic metabolic panel (07/04/2024 5:21 PM EDT) [facility] Sodium 136 133 - 145 mmol/L LAB CHEMISTRY METHOD 07/04/2024 6:[address] [facility] Potassium 4.2 3.5 - 5.5 mmol/L LAB CHEMISTRY METHOD 07/04/2024 6:43 PM [facility] Chloride 107 96 - 110 mmol/L LAB CHEMISTRY METHOD 07/04/2024 6:43 PM [facility] CO2 23 21 - 32 mmol/L LAB CHEMISTRY METHOD 07/04/2024 6:43 PM [facility] Anion Gap 6 3 - 11 LAB CHEMISTRY METHOD 07/04/2024 6:43 PM [facility] Glucose 118(H) 70 - 100 mg/dL LAB CHEMISTRY METHOD 07/04/2024 6:43 PM [facility] BUN 13 5 - 25 mg/dL LAB CHEMISTRY METHOD 07/04/2024 6:43 PM [facility] Creatinine 0.82 0.70 - 1.30 mg/dL LAB CHEMISTRY METHOD 07/04/2024 6:[address] [facility] eGFR 89 >=60 mL/min/1. 73m2 LAB CHEMISTRY METHOD 07/04/2024 6:[address] [facility] Comment:Calculation based on the Chronic Kidney Disease Epidemiology Collaboration (CKD-EPI) equation refit without adjustment for race. BUN/Creatinine Ratio 15.9 LAB CHEMISTRY METHOD 07/04/2024 6:[address] [facility] Calcium 9.5 8.5 - 10.5 mg/dL LAB CHEMISTRY METHOD 07/04/2024 6:[address] [facility] Blood Venous blood specimen / Unknown 07/04/2024 5:21 PM EDT 07/04/2024 5:58 PM EDT Italo Elena Samayoa MD LAB BLOOD ORDERABLES Final Resu lt [facility] [address] [place] [address], from Last 3 Months Insurance [employer] MEDICARE Care Teams Director Surface Transportation Relationship Specialty Start Date End Date Oneil Goel MD [address] [place] [address] PCP - General Internal Medicine 08/23/21
== END 2024-09-21 11:05 | disposition home or self-care (01) ==
LOC: HO.HGI 10:32
PROVIDERS: PCP Internal Medicine; Visit Provider Nurse Practitioner Family
DX: K59.00 Constipation, unspecified (principal)
CPT/HCPCS: 99203

== ENCOUNTER → 2024-09-21 10:32 | Outpatient (BNVA) | payer MEDICARE, SELFPAY | PROVIDERS: PCP Internal Medicine; Visit Provider Nurse Practitioner Family | DX: Z12.11 Encounter for screening for malignant neoplasm of colon (principal) | CPT/HCPCS: 99202 ==

== ENCOUNTER 2024-12-04 12:57 | Outpatient (AMB) | payer MEDICARE, SELFPAY ==
--- NOTE | 2024-12-04 12:58 | A.OFFPC_ITS ---
Vital Signs 12/04/24 13:04 Weight 202 lb 4 oz BP 138/80 Blood Pressure Location Lt brachial Position Sitting Respiration 20 Pulse 68 Pulse Source Pulse Oximeter Temp 98.1 F Temp Source Temporal Artery Scan Pulse Oximetry (%) 98 Oxygen Delivery Method Room Air Intake Visit Reasons: Preop for Dr. Pugh/deepti labs and EKG Social Science Teacher Required: No Accompanied by: Self / Same As Patient Allergies No Known Allergies Allergy (Verified 12/04/24 14:18) Medication List - Last Reconciled 12/04/24 by Francie Kessler PA-C acetaminophen ER (Tylenol Arthritis Pain) 1,300 mg (2 x 650 mg) PO Q12H amlodipine 10 mg PO DAILY brimonidine 0.15% 1 drp ophthalmic (eye) TID dorzolamide-timolol 22.3-6.8 mg/mL mL ophthalmic (eye) finasteride 5 mg PO DAILY 90 days latanoprost 0.005% 1 drp ophthalmic (eye) QPM lisinopril 10 mg PO DAILY cu-umj-jiglu-L3-jicjezl-twtios [id number] mcg (Men 50 Plus Multivitamin) 1 tab PO DAILY polyethylene glycol 3350 (Miralax) 238 grams PO ONCE tamsulosin 0.4 mg PO BEDTIME 90 days tolterodine ER 4 mg PO DAILY 90 days Tobacco use date assessed: 12/04/24 Fall risk assessment: No Falls in past year Last assessed Fall Risk: 12/04/24 Dental Screening Dental Screen Date: 12/04/24 Did you have a dental visit in the last 12 months?: Yes Did you have a dental problem in the last 6 months where you did not have access to dental care?: No Was dental information given to patient?: Patient has dentist HPI Preop for Dr. Pugh/deepti labs and EKG HPI Details The patient is an 79-year-old male presenting for preoperative clearance for spinal stenosis surgery. The patient has a history of spinal stenosis in the lumbar region without neurogenic claudication, which has been causing ongoing lower back pain, especially during activities such as mowing the lawn. He has been consulting a chiropractor, but the pain has not improved and worsens as the day progresses. The patient reports numbness and tingling in the left leg greater than the right when walking, which improves with sitting. He requires a grocery cart for support and leans over it while walking. His last neurosurgery consultation was on 08/24/2021, and prior to that, he was seen on 07/31/2024, where multilevel disc changes and L4-L5 stenosis were discussed. An MRI on 07/11/2024 showed severe degenerative disc changes with loss of height at L2-L3 and L3-L4, with L3-L4 progressing to nearly complete autofusion. The MRI also revealed a central bulge at L4-L5 with right greater than left facet arthropathy and ligamentous hypertrophy causing moderate central stenosis. Sclerotic endplate changes were noted at L5-S1, which were largely stable compared to prior studies. The patient has a history of hypertension, glaucoma, arthritis, and an irregular heartbeat. He is currently on medications including Tylenol, amlodipine, lisinopril, finasteride, lactulose, naproxen, tamsulosin, and tolterodine. He was advised to avoid naproxen and aspirin three days before and after surgery to prevent bleeding. Social History - Lives alone and manages daily activiti es independently, including grocery shopping. [facility] Medical History (Updated 12/04/24 @ 14:26 by Francie Kessler PA-C) Degenerative disc disease Spinal stenosis Heart murmur Pre-op evaluation Encounter for preventive care Vertigo Glaucoma Establishing care with new doctor, encounter for Arthritis Bilateral inguinal hernia Bilateral open angle glaucoma Benign essential HTN Chronic constipation Colon polyps Surgical History Hx of cholecystectomy History of colonoscopy (~09/03/19) History of surgery Family History Father No problems noted. Mother Diabetes High blood pressure Social History Housing: House Alcohol intake: current Alcohol intake frequency: does not drink Patient Tobacco Use Status: Former Tobacco user service: Yes Current occupational status: retired Cognitive needs: No Hearing needs: No Vision needs: Yes (rx glasses) Questionnaire PHQ-9 Over the last 2 weeks, how often have you been bothered by any of the following problems? 1. Little interest or pleasure in doing things: not at all 2. Feeling down, depressed, or hopeless: not at all 3. Trouble falling or staying asleep, or sleeping too much: not at all 4. Feeling tired or having little energy: not at all 5. Poor appetite or overeating: not at all 6. Feeling bad about yourself - or that you are a failure or have let yourself or your family down: not at all 7. Trouble concentrating on things, such as reading the newspaper or watching television: not at all 8. Moving or speaking so slowly that other people could have noticed. Or the opposite - being so fidgety or restless that you have been moving around a lot more than usual: not at all 9. Thoughts that you would be better off or of hurting yourself in some way: not at all Total score: 0 Depression Screening Interpretation: Negative Depression Screening Done: Yes 13973 - PHQ-9 Billing: Yes Source: Developed by Drs. Jasen Charles, Swetha Duncan, Reid Kaufman and colleagues, with an educational guillermo from [employer]. Thrive Questionnaire Date Thrive assessed: 12/04/24 I am a: Patient What is your living situation today?: I have a steady place to live Within the past 12 months, did the food you bought not last and you didn't have the money to get more?: Never true Within the past 12 months, did you worry whether your food would run out before you got money to buy more?: Never true Do you have trouble paying for medicines?: No Do you have trouble getting transportation to medical appointments?: No Do you have trouble paying your heating and electricity bill?: No Do you have trouble taking care of your child, family member or friend?: No Do you have trouble with day-to-day activities such as bathing, preparing meals, shopping, managing finances, etc.?: No Are you currently unemployed and looking for a job?: No Are you interested in more education?: No Please select the resources that you would like help with: None Currently or been in a relationship where the following occur: No concerns reported THRIVE Score: 0 AUDIT C Alcohol Use Questionnaire (AUDIT-C) 1. How often do you have a drink containing alcohol?: Never 3. How often do you have six or more drinks on one occasion?: Never Total Score: 0 Score Reviewed/Action Taken: No CALEB-7 AMB Questionnaire CALEB-7 Date CALEB - 7 assessed: 12/04/24 Feeling nervous, anxious, or on edge: 0 = Not at all Not being able to stop or control worryin = Not at all Worrying too much about different things: 0 = Not at all Trouble relaxin = Not at all Being so restless that it is hard to sit still: 0 = Not at all Becoming easily annoyed or irritable: 0 = Not at all Feeling afraid as if something awful might happen: 0 = Not at all Total CALEB-7 score (0-4 normal; 5-9 mild; 10-14 moderate; 15-21 severe): 0 Source: Developed by Drs. Jasen Charles, Swetha Duncan, Reid Kaufman and colleagues, with an educational guillermo from [employer]. CALEB-7 Assessment Billing CALEB-7 Assessment Tool: CALEB-7 Assessment 00506 Review of Systems Const Details: - Cardiovascular: Denies chest pain, dyspnea, or syncope. - Gastrointestinal: Denies black or bloody stools. - Neurological: Reports numbness and tingling in the left leg greater than the right when walking, which improves with sitting. - General: Denies dizziness or recent falls. All systems reviewed & are unremarkable except as noted in HPI and below Physical exam (Primary Care) Vital Signs: Last Vital Signs Temp 98.1 F 12/04/24 13:04 Pulse 68 12/04/24 13:04 Resp 20 12/04/24 13:04 BP 138/80 12/04/24 13:04 Pulse Ox 98 12/04/24 13:04 Oxygen Delivery Method Room Air 12/04/24 13:04 Care Plan Goal for BP management: <140/90 at Goal BMI Assessment/Plan discussion: High BMI High, discussed plan: lifestyle, weight reduction, dietary, physical activity, alcohol moderation and other Tobacco/Smoking Status: Tobacco use Status Tobacco use date assessed 12/04/24 12/04/24 12:59 Patient Tobacco Use Status Former Tobacco user 12/04/24 12:59 PHQ-9: PHQ-9 Score PHQ-9: Total score 0 12/04/24 12:59 Depression Screening Interpretation: Negative Thrive Assessment: Date of Thrive Assessment Date Thrive assessed 12/04/24 12/04/24 12:59 Currently or been in a relationship where the following occur: No concerns reported Const Other: Appearance: Alert. Oriented X3. No acute distress. Head: Normal external exam. Normocephalic. Atraumatic. Eyes: Pupils are equal, round, and reactive to light. Extraocular movements intact. Conjunctiva and sclera normal. Eyelids normal. Throat: Pharynx normal. Uvula midline. Moist mucous membranes. Neck: Normal inspection. Neck supple. Full range of motion. No adenopathy. Thyroid Normal. No meningeal signs. No neck mass noted. Cardiovascular: Irregular heartbeats noted. Heart sound includes a murmur. Pulses normal throughout. Respiratory: No respiratory distress. Painless inspiration. Breath sounds normal. No wheezes/rales/rhonchi noted. No accessory muscle usage noted or decreased air movement noted. Abdomen: Soft and nontender. No distention noted. No organomegaly noted. Back: Full range of motion noted. Skin: Skin warm and dry. Normal skin color. Normal skin turgor. No rashes/lesions/lacerations noted. Extremities: No lower extremity edema. Extremities exhibit normal range of motion. Neuro: Oriented X 3. No motor deficit. No sensory deficit. Reflexes normal. Office Procedures Flu Questionnaire Does the patient have a severe egg allergy?: No Does the patient have severe life threatening allergies?: No Does the patient have a fever or illness today?: No Has the patient ever had Guillain-[place] Syndrome?: No Has the patient ever had any past reaction to a flu shot?: No Immunizations Fluarix [id number] (PF) 45 mcg (15 mcg x 3)/0.5 mL IM syringe Performing Provider: Francie Kessler PA-C [facility] [place] [facility] Documented (not given) by: Breann Coleman CMA on 12/04/24 13:11 Reason Not Given: Received Previously Results Reviewed Results Reviewed: - MRI (07/11/2024): Severe degenerative disc changes with loss of height at L2-L3 and L3-L4, nearly complete autofusion at L3-L4, central bulge at L4-L5, moderate central stenosis, sclerotic endplate changes at L5-S1. Coding Level of Care Code Est Pt Level 4 (69390) Complex EM visit Add On G2211 Diagnoses Pre-op evaluation Z01.818 Spinal stenosis M48.00 Degenerative disc disease Benign essential HTN I10 Heart murmur R01.1 Glaucoma H40.9 Additional Codes CALEB-7 Assessment Billing - CALEB-7 Assessment Tool: CALEB-7 Assessment 76608 ([id number]) PHQ-9 - 86921 - PHQ-9 Billing: Yes ([id number]) Time Spent (min) 50 Assessment & Plan Assessment & Plan (1) Pre-op evaluation: Code(s): Z01.818 - Encounter for other preprocedural examination Category: Medical Plan: Scheduled for December [address] Leyva at [facility] he is scheduled for L4-L5 decompression surgery to address spinal stenosis which is expected to alleviate back pain and let paresthesias. (2) Spinal stenosis: Code(s): M48.00 - Spinal stenosis, site unspecified Category: Medical Plan: The patient is scheduled for an L4-L5 decompression surgery to address spinal stenosis, which is expected to alleviate back pain and leg paresthesias. Preoperative tests including blood work, EKG, and chest X-ray are planned to ensure surgical readiness. The patient was advised to avoid NSAIDs like naproxen and aspirin three days before and after surgery to minimize bleeding risk. (3) Degenerative disc disease: Category: Medical Plan: The degenerative disc disease is being managed conservatively with plans for surgical intervention to address the associated spinal stenosis. The patient has been advised to continue avoiding activities that exacerbate symptoms and to follow up postoperatively for further management. (4) Benign essential HTN: Code(s): I10 - Essential (primary) hypertension Category: Medical Plan: The patient's hypertension is managed with medications including amlodipine and lisinopril. He was instructed to continue these medications, except for lisinopril on the day of surgery, as per previous instructions. (5) Heart murmur: Code(s): R01.1 - Cardiac murmur, unspecified Category: Medical Plan: An ultrasound of the heart is planned to evaluate the heart murmur and potential valve stenosis. The patient was reassured that the murmur would not prevent the scheduled surgery. (6) Glaucoma: Code(s): H40.9 - Unspecified glaucoma Category: Medical Plan: Patient to continue current eye drops. Condition is chronic and stable continue to monitor. Plan Plan Patient was informed and verbally consented to the use of an ambient scribe for clinic note documentation during this visit. 1. Spinal Stenosis, Lumbar Region Without Neurogenic Claudication The patient is scheduled for an L4-L5 decompression surgery to address spinal stenosis, which is expected to alleviate back pain and leg paresthesias. Preoperative tests including blood work, EKG, and chest X-ray are planned to ensure surgical readiness. The patient was advised to avoid NSAIDs like naproxen and aspirin three days before and after surgery to minimize bleeding risk. 2. Degenerative Disc Disease The degenerative disc disease is being managed conservatively with plans for surgical intervention to address the associated spinal stenosis. The patient has been advised to continue avoiding activities that exacerbate symptoms and to follow up postoperatively for further management. 3. Hypertension The patient's hypertension is managed with medications including amlodipine and lisinopril. He was instructed to continue these medications, except for lisinopril on the day of surgery, as per previous instructions. 4. Irregular Heartbeat/heart murmur An ultrasound of the heart is planned to evaluate the heart murmur and potential valve stenosis. The patient was reassured that the murmur would not prevent the scheduled surgery. I discussed the imaging findings with the patient, explaining the moderate stenosis at L4-L5 and the expected benefits of decompression surgery. We reviewed the risks and benefits of the procedure, and the patient expressed understanding and willingness to proceed. I advised the patient to avoid NSAIDs before and after surgery to reduce bleeding risk and discussed the need for preoperative tests. Orders: Orders Comprehensive Met. Panel Today Z00.00 - Encounter for general adult medical examination without abnormal findings XR chest 2V Today Z01.818 - Encounter for other preprocedural examination CA echo transthoracic complete Today R01.1 - Cardiac murmur, unspecified Influenza [id number] Immunization Today Z23 - Encounter for immunization Complete Blood Count no Diff Today Z00.00 - Encounter for general adult medical examination without abnormal findings Liver Panel Today Z00.00 - Encounter for general adult medical examination without abnormal findings Magnesium Today Z00.00 - Encounter for general adult medical examination without abnormal findings ECG 12 lead EKG Today Z01.818 - Encounter for other preprocedural examination Medications: Discontinued bisacodyl (Dulcolax (bisacodyl)) Discontinued Reason: Doctor's Order 10 mg (2 x 5 mg) PO BEDTIME 180 tabs 4RF Patient Instructions: - Avoid NSAIDs like naproxen and aspirin three days before and after surgery. - Continue taking blood pressure medications, except lisinopril on the day of surgery. - Complete preoperative tests including blood work, EKG, and chest X-ray at the hospital. - Follow up with the clinic after surgery for further management.
[2024-12-04 13:04] VITALS: BP 138/80; PULSE 68; RESP 20; TEMP 36.7; O2SAT 98
--- OUTSIDE RECORDS SUMMARY | 2024-12-04 15:15 | XMS_ITS | Clinical Summary ---
Author Organization [facility] Address [address] [place] [address] Phone Care Team Providers Care Night Custodian Name Role Phone Oneil Goel MD Primary Care Provider [phone] Allergies Active Allergy Reactions Criticality Noted Date [...] Active Problems Problem Noted Date Diagnosed Date Spinal stenosis, lumbar beth on without neurogenic claudication 11/26/2024 Lumbar stenosis with neurogenic claudication Assessment & [...] have to mow the lawn so often. Surgical History Surgery Date Site/Laterality Comments OTHER SURGICAL HISTORY Left PROCEDURE: CA RMVL SEC MEMBRANOUS CTRC CORNEO-SCLL SCTJ HERNIA REPAIR PROCEDURE: CA RPR 1ST INGUN HRNA AGE 6 MO-5 YRS REDUCIBLE CHOLECYSTECTOMY PROCEDURE: CA LAPAROSCOPY SURG CHOLECYSTECTOMY Medical History Medical History [...] 07/31/2024 10:51 AM EDT Plan of Treatment Upcoming Encounters Date Type Department Care Team (Latest Contact Info) Description 12/15/2024 9:30 AM EDT Hospital Encounter [facility] OR [address] [place] [address] Sheryl Pugh MD [address] [place] [address] 12/15/2024 9:30 AM EDT - 12/15/2024 12:00 PM EDT Surgery [facility] OR [address] [place] [id number] Sheryl Pugh MD [address] [place] [address] L4-5 Open decompression [67799 (CPT )] Scheduled Procedures Name Priority Associated Diagnoses Date/Ti me DECOMPRESSION LUMBAR Spinal stenosis, lumbar region without neurogenic claudication 12/15/2024 9:30 AM EDT Health Maintenance Due Date Last Done Comments Pneumococcal Vaccine: 50+ Years (2 of 2 - PCV20 or PCV21) 08/03/2015 08/02/2014, 08/09/2010 Cholesterol Screening (Lipid Panel) [...] on patient's age to complete this topic Goals Goal Patient Goal Type Associated Problems Recent Progress Patient-Stated? Author Autogenerat ed Goal Care Plan Autogenerated Problem No Cesilia Latham MA Procedures Procedure Name Priority Date/Time Associated Diagnosis Comments BASIC METABOLIC PANEL STAT 07/04/2024 5:21 PM EDT from Last 3 Months or Most Recently Relevant to Health Maintenance Results * (ABNORMAL) Basic metabolic panel (07/04/2024 5:21 PM EDT) Sodium 136 133 - 145 mmol/L LAB CHEMISTRY METHOD 07/04/2024 6:43 PM EDT [facility] Potassium 4.2 3.5 - 5.5 mmol/L LAB CHEMISTRY METHOD 07/04/2024 6:43 PM EDT [facility] Chloride 107 96 - 110 mmol/L LAB CHEMISTRY METHOD 07/04/2024 6:43 PM EDT [facility] CO2 23 21 - 32 mmol/L LAB CHEMISTRY METHOD 07/04/2024 6:43 PM EDT [facility] Anion Gap 6 3 - 11 [facility] Glucose 118(H) 70 - 100 mg/dL LAB CHEMISTRY METHOD 07/04/2024 6:43 PM EDT [facility] BUN 13 5 - 25 mg/dL LAB CHEMISTRY METHOD 07/04/2024 6:43 PM T [facility] Creatinine 0.82 0.70 - 1.30 mg/dL LAB CHEMISTRY METHOD 07/04/2024 6:43 PM EDT [facility] eGFR 89 >=60 mL/min/1. 73m2 LAB CHEMISTRY METHOD 07/04/2024 6:43 PM EDT [facility] Comment:Calculation based on the Chronic Kidney Disease Epidemiology Collaboration (CKD-EPI) equation refit without adjustment for race. BUN/Creatinine Ratio 15.9 LAB CHEMISTRY METHOD 07/04/2024 6:43 PM T [facility] Calcium 9.5 8.5 - 10.5 mg/dL LAB CHEMISTRY METHOD 07/04/2024 6:43 PM [facility] Blood Venous blood specimen / Unknown 07/04/2024 5:21 PM EDT 07/04/2024 5:58 PM EDT us Italo Samayoa MD LAB BLOOD ORDERABLES Final Resu lt [facility] [address] [place] [address], from Last 3 Months or Most Recently Relevant to Health Maintenance Additional Health Concerns Active Problems Noted Date Diagnosed Date Autogenerated Problem 11/26/2024 Insurance [employer] MEDICARE Care Teams Night Custodian Relationship Specialty Start Date End Date Oneil Goel MD [address] [place] PCP - General Internal Medicine 08/23/21
--- OUTSIDE RECORDS SUMMARY | 2024-12-04 15:16 | XMS_ITS | Clinical Summary ---
Author Organization [facility] Address [address] [place] [address] Care Team Providers Care Petroleum Terminal Plant Operator Name Role Phone Oneil Goel MD Primary Care Provider [phone] Social History Tobacco Use Types Packs/Day Years [...] age to complete this topic Care Teams Petroleum Terminal Plant Operator Relationship Specialty Start Date End Date Oneil Goel MD [address] [place] [address] PCP - General Internal Medicine 01/04/20
--- OUTSIDE RECORDS SUMMARY | 2024-12-04 15:16 | XMS_ITS | Patient Health Record ---
Author Organization [facility] Address [address] [place] [address] Care Team Providers Care Retail Brand Ambassador Name Role Phone Jasen Clark Unavailable [phone] Reason For Referral No Information Plan Of Treatment No Information
== END 2024-12-04 13:28 | disposition home or self-care (01) ==
LOC: HO.HMCSH 12:57
PROVIDERS: PCP Internal Medicine; Visit Provider Physician Assistant Medical
DX: Z01.818 Encounter for other preprocedural examination (principal); M48.00 Spinal stenosis, site unspecified; I10 Essential (primary) hypertension; R01.1 Cardiac murmur, unspecified; H40.9 Unspecified glaucoma; Z23 Encounter for immunization

== ENCOUNTER 2024-12-04 12:57 | Outpatient (REF) | payer MEDICARE, SELFPAY ==
--- NOTE | ~2024-12-04 | XR_ITS ---
EXAMINATION: XR CHEST 2 VIEWS HISTORY: Z01.818 - Encounter for other preprocedural examination COMPARISON: There are no prior studies available for comparison. FINDINGS: PA and lateral views of the chest are submitted. The lungs are expanded and clear. There is no pleural effusion, pneumothorax, or pulmonary vascular congestion. The heart is normal in size. The bones are intact. XR/XR chest 2V IMPRESSION: Clear lungs. Electronically signed by: Jasen Lee MD 12/04/2024 02:58 PM EDT
--- NOTE | 2024-12-04 14:29 | ECG_ITS ---
Test Reason : PREOP Blood Pressure : */* mmHG Vent. Rate : 81 BPM Atrial Rate : 81 BPM P-R Int : 144 ms QRS Dur : 76 ms QT Int : 364 ms P-R-T Axes : 46 36 38 degrees QTcB Int : 422 ms Sinus rhythm with sinus arrhythmia with occasional Premature ventricular complexes Otherwise normal ECG No previous ECGs available Referred By: Francie Kessler Electronically Signed By: Rodrick Sims
[2024-12-04 14:55] LABS: Hematocrit 44.3 % (42.0-52.0); Hemoglobin 13.6 g/dl (14.0-18.0); Mean Corpuscular HGB Conc 30.7 g/dl (31.0-36.0); Mean Corpuscular Hemoglobin 28.6 pg (27.0-33.0); Mean Corpuscular Volume 93.1 fL (80.0-98.0); NRBC Abs Auto 0.000 X10*3/uL (0.0-0.012); NRBC Pct Auto 0.0 /100WBC (0.0-0.2); Platelet Count 209 X10*3/uL (160-400); Red Blood Count 4.76 X10*6/uL (4.60-5.80); White Blood Count 5.7 X10*3/uL (4.8-10.8)
[2024-12-04 16:24] LABS: Alanine Aminotransferase 43 U/L (0-40); Albumin Level 4.7 g/dL (3.5-5.0); Anion Gap 12 (12-20); Aspartate Amino Transferase 35 U/L (5-37); Blood Urea Nitrogen 17 mg/dL (9-16); Calcium 10.0 mg/dL (8.4-10.2); Carbon Dioxide 27 mmol/L (22-29); Chloride 107 mmol/L (96-108); Estimated Glomerular Filt Rate > 60; Magnesium 2.2 mg/dL (1.6-2.6); Potassium 4.1 mmol/L (3.3-5.1); Sodium 142 mmol/L (135-145); Total Protein 7.3 g/dL (6.5-8.0)
[2024-12-04 18:07] LABS: Alkaline Phosphatase 56 U/L (39-117)
== END 2024-12-04 12:58 | disposition home or self-care (01) ==
LOC: HO.XRAY 12:57
PROVIDERS: PCP Physician Assistant Medical; Visit Provider Physician Assistant Medical
DX: Z00.00 Encounter for general adult medical examination without abnormal findings (principal); M48.061 Spinal stenosis, lumbar region without neurogenic claudication; I10 Essential (primary) hypertension; R01.1 Cardiac murmur, unspecified; H40.9 Unspecified glaucoma; Z28.89 Immunization not carried out for other reason; Z79.899 Other long term (current) drug therapy
CPT/HCPCS: 36415; 71046; 80053; 82248; 83735; 85027; 90471; 93005; 96127; 99212

== ENCOUNTER → 2024-12-04 14:29 | Outpatient (BNV) | payer MEDICARE, SELFPAY | PROVIDERS: PCP Physician Assistant Medical; Visit Provider Internal Medicine Cardiovascular Disease | DX: I49.3 Ventricular premature depolarization (principal) | CPT/HCPCS: 93010 ==

== ENCOUNTER → 2024-12-04 14:39 | Outpatient (BNV) | payer MEDICARE, SELFPAY | PROVIDERS: PCP Physician Assistant Medical; Visit Provider Radiology Diagnostic Radiology | DX: Z01.818 Encounter for other preprocedural examination (principal) | CPT/HCPCS: 71046 ==

== ENCOUNTER 2025-01-12 09:41 | Outpatient (AMB) | payer MEDICARE, SELFPAY ==
--- NOTE | 2025-01-12 09:42 | MHC.PC.OV ---
Vital Signs 01/12/25 09:48 Height 5 ft 8 in Weight 204 lb 0.2 oz BMI 31.0 BP 121/59 L Blood Pressure Location Rt brachial Pulse 75 Pulse Source Pulse Oximeter Temp 96.8 F Pulse Oximetry (%) 97 Intake Visit Reasons: 1 Month Follow up Intake Note: Left leg he is still having tingling Allergies No Known Allergies Allergy (Verified 01/12/25 10:37) Medication List - Last Reconciled 01/12/25 by Francie Kessler PA-C acetaminophen ER (Tylenol Arthritis Pain) 1,300 mg (2 x 650 mg) PO Q12H amlodipine 10 mg PO DAILY brimonidine 0.15% 1 drp ophthalmic (eye) TID dorzolamide-timolol 22.3-6.8 mg/mL mL ophthalmic (eye) finasteride 5 mg PO DAILY 90 days latanoprost 0.005% 1 drp ophthalmic (eye) QPM lisinopril 10 mg PO DAILY [id number] mcg (Men 50 Plus Multivitamin) 1 tab PO DAILY omega 5-xxf-puz-fish oil 1,000 (120-180) mg (Fish Oil) 1 cap PO DAILY polyethylene glycol 3350 (Miralax) 238 grams PO ONCE tamsulosin 0.4 mg PO BEDTIME 90 days tolterodine ER 4 mg PO DAILY 90 days wheat dextrin (Best Fiber) 1.5 grams PO BID Tobacco use date assessed: 12/04/24 Dental Screening Dental Screen Date: 12/04/24 HPI HPI Comments History of Present Illness Details History of Present Illness The patient is an 79 year old individual presenting for a follow-up visit after an L4-L5 decompression for spinal stenosis. The surgery was performed on December [address] Sheryl Pugh at [facility], and the patient was discharged the same day. Post-operatively, the patient's back symptoms are reportedly pretty much the same, with persistent tingling down the legs, a symptom which began a month prior to the surgery and prompted the procedure. The patient reports minimal pain, which occurs upon waking in the morning and is managed effectively with Tylenol for arthritis. Mobility-gordon, the patient uses a cane in the morning but can walk without it for the rest of the day, though the patient stays near a wall for bracing. The patient has had no falls since the surgery and has been advised to limit lifting to no more than 8 pounds. Past medical history is significant for glaucoma, for which the patient has had surgery on one eye and is awaiting surgery on the other. The patient also has hypertension, which is managed with amlodipine and lisinopril 10 mg. Recent blood work from the previous month was normal. Social History - Living Situation: The patient lives alone. - Functional Status: The patient expresses a need for assistance with household tasks like washing dishes and doing laundry. - Support System: The patient's sister provided assistance with bandage changes post-surgery. - Nutrition: The patient utilizes the Meals on Wheels service. - Activity Level: The patient is scheduled to begin physical therapy. - Mobility: The patient drives for local errands. [facility] Medical History (Updated 01/12/25 @ 10:46 by Francie Kessler PA-C) No home medical services Degenerative disc disease Spinal stenosis Heart murmur Pre-op evaluation Encounter for preventive care Vertigo Glaucoma Establishing care with new doctor, encounter for Arthritis Bilateral inguinal hernia Bilateral open angle glaucoma Benign essential HTN Chronic constipation Colon polyps Surgical History (Updated 01/12/25 @ 10:46 by Francie Kessler PA-C) Status post laminectomy with spinal fusion Hx of cholecystectomy History of colonoscopy (~09/03/19) History of surgery Family History Father No problems noted. Mother Diabetes High blood pressure Social History Housing: House Alcohol intake: current Alcohol intake frequency: does not drink Patient Tobacco Use Status: Former Tobacco user service: Yes Current occupational status: retired Cognitive needs: No Hearing needs: No Vision needs: Yes (rx glasses) Questionnaire PHQ-9 Over the last 2 weeks, how often have you been bothered by any of the following problems? 1. Little interest or pleasure in doing things: not at all 2. Feeling down, depressed, or hopeless: not at all 3. Trouble falling or staying asleep, or sleeping too much: not at all 4. Feeling tired or having little energy: not at all 5. Poor appetite or overeating: not at all 6. Feeling bad about yourself - or that you are a failure or have let yourself or your family down: not at all 7. Trouble concentrating on things, such as reading the newspaper or watching television: not at all 8. Moving or speaking so slowly that other people could have noticed. Or the opposite - being so fidgety or restless that you have been moving around a lot more than usual: not at all 9. Thoughts that you would be better off or of hurting yourself in some way: not at all Total score: 0 Depression Screening Interpretation: Negative Depression Screening Done: Yes 44030 - PHQ-9 Billing: Yes Source: Developed by Drs. Jasen Charles, Swetha Duncan, Reid Kaufman and colleagues, with an educational guillermo from [employer]. Thrive Questionnaire Date Thrive assessed: 12/04/24 I am a: Patient What is your living situation today?: I have a steady place to live Within the past 12 months, did the food you bought not last and you didn't have the money to get more?: Never true Within the past 12 months, did you worry whether your food would run out before you got money to buy more?: Never true Do you have trouble paying for medicines?: No Do you have trouble getting transportation to medical appointments?: No Do you have trouble paying your heating and electricity bill?: No Do you have trouble taking care of your child, family member or friend?: No Do you have trouble with day-to-day activities such as bathing, preparing meals, shopping, managing finances, etc.?: No Are you currently unemployed and looking for a job?: No Are you interested in more education?: No Please select the resources that you would like help with: None Currently or been in a relationship where the following occur: No concerns reported THRIVE Score: 0 AUDIT C Alcohol Use Questionnaire (AUDIT-C) 1. How often do you have a drink containing alcohol?: Never 3. How often do you have six or more drinks on one occasion?: Never Total Score: 0 Score Reviewed/Action Taken: No CALEB-7 AMB Questionnaire CALEB-7 Date CALEB - 7 assessed: 12/04/24 Feeling nervous, anxious, or on edge: 0 = Not at all Not being able to stop or control worryin = Not at all Worrying too much about different things: 0 = Not at all Trouble relaxin = Not at all Being so restless that it is hard to sit still: 0 = Not at all Becoming easily annoyed or irritable: 0 = Not at all Feeling afraid as if something awful might happen: 0 = Not at all Total CALEB-7 score (0-4 normal; 5-9 mild; 10-14 moderate; 15-21 severe): 0 Source: Developed by Drs. Jasen Charles, Swetha Duncan, Reid Kaufman and colleagues, with an educational guillermo from [employer]. CALEB-7 Assessment Billing CALEB-7 Assessment Tool: CALEB-7 Assessment 92676 Review of Systems Narrative Review of Systems - Constitutional: Denies fevers. - Neurological: Reports persistent tingling down the legs. - Musculoskeletal: Reports minimal back pain upon waking. - Cardiovascular: Denies chest pain. - Respiratory: Denies shortness of breath. - Genitourinary: Denies urinary incontinence. - General: Denies falls since surgery. Const All systems reviewed & are unremarkable except as noted in HPI and below Physical exam (Primary Care) Vital Signs: Last Vital Signs Temp 96.8 F 01/12/25 09:48 Pulse 75 01/12/25 09:48 BP 121/59 L 01/12/25 09:48 Pulse Ox 97 01/12/25 09:48 Care Plan Goal for BP management: <140/90 at Goal BMI result Body Mass Index 31.0 BMI Assessment/Plan discussion: High BMI High, discussed plan: lifestyle, weight reduction, dietary, physical activity, alcohol moderation and other Tobacco/Smoking Status: Tobacco use Status Tobacco use date assessed 12/04/24 01/12/25 09:42 Patient Tobacco Use Status Former Tobacco user 01/12/25 09:42 PHQ-9: PHQ-9 Score PHQ-9: Total score 0 01/12/25 09:45 Depression Screening Interpretation: Negative Thrive Assessment: Date of Thrive Assessment Date Thrive assessed 12/04/24 01/12/25 09:42 Currently or been in a relationship where the following occur: No concerns reported Narrative Physical Exam Appearance: Alert. Oriented X3. No acute distress. Head: Normal external exam. Normocephalic. Atraumatic. Eyes: Pupils are equal, round, and reactive to light. Extraocular movements intact. Conjunctiva and sclera normal. Eyelids normal. Throat: Pharynx normal. Uvula midline. Moist mucous membranes. Neck: Normal inspection. Neck supple. Full range of motion. Cardiovascular: Normal heart rate and rhythm. Respiratory: No respiratory distress. Painless inspiration. Back: Full range of motion noted. Scar from L4, L5 decompression surgery scar is completely healed. No fluctuance, induration, rashes, signs of infection noted. Skin: Skin warm and dry. Normal skin color. Normal skin turgor. No rashes/lesions/lacerations noted. Extremities: No lower extremity edema. Extremities exhibit normal range of motion. No calf tenderness is noted. Neuro: Oriented X 3. No motor deficit. No sensory deficit. Reflexes normal. Reports tingling down the legs, which started a month before surgery and persists post-surgery. Normal steady gait. No assistive devices at this time. Office Procedures Flu Questionnaire Does the patient have a severe egg allergy?: No Does the patient have severe life threatening allergies?: No Does the patient have a fever or illness today?: No Has the patient ever had Guillain-[place] Syndrome?: No Has the patient ever had any past reaction to a flu shot?: No Immunizations Fluarix [id number] (PF) 45 mcg (15 mcg x 3)/0.5 mL IM syringe Performing Provider: Francie Kessler PA-C Performing Location: [facility] Documented (not given) by: Odessa Capps on 01/12/25 09:55 Dose Route Admin Location Dispensed Lot Number Expiration Date [facility] [employer] 0.5 mL IM mL VIS Given Date VIS Provided VIS Publication Date 01/12/25 Single Vaccine 24 Eligibility Eligibility Date Funding Source Results Reviewed Results Reviewed: Results - Labs: Blood work from the previous month was normal. Coding Level of Care Code Est Pt Level 4 (73355) Complex visit Add On G2211 Diagnoses Status post laminectomy with spinal fusion Z98.1 No home medical services Z75.0 Benign essential HTN I10 Glaucoma H40.9 Additional Codes CALEB-7 Assessment Billing - CALEB-7 Assessment Tool: CALEB-7 Assessment 14911 ([id number]) PHQ-9 - 66095 - PHQ-9 Billing: Yes ([id number]) Assessment & Plan Assessment & Plan (1) Status post laminectomy with spinal fusion: Comment: History of spinal stenosis; degenerative disc disease s/p surgery with Dr. Keaton Arroyo 12/15/24 Code(s): Z98.1 - Arthrodesis status Category: Surgical Plan: The patient is recovering from a recent L4-L5 decompression for spinal stenosis and continues to experience persistent tingling down the legs, similar to pre-operative symptoms. The patient is scheduled to begin physical therapy on the of the month, which is anticipated to help with symptoms and nerve recovery. The patient was advised to wait for physical therapy instruction before starting exercises and to adhere to a lifting restriction of less than 8 pounds. A follow-up appointment is scheduled for February 22 to monitor progress. (2) No home medical services: Code(s): Z75.0 - Medical services not available in home Category: Medical Plan: The patient lives alone and has expressed a need for assistance with activities of daily living, such as washing dishes and doing laundry. Referrals were placed for a home health aide, senior living, and a director of medical education to provide support. Application paperwork for a handicap placard was completed to aid with community mobility. (3) Benign essential HTN: Code(s): I10 - Essential (primary) hypertension Category: Medical Plan: The patient's blood pressure is well-controlled on the current regimen of amlodipine and lisinopril 10 mg. Will continue current medications, and no refills are needed at this time. (4) Glaucoma: Code(s): H40.9 - Unspecified glaucoma Category: Medical Plan: The patient has a history of glaucoma and has had surgery on one eye. The patient is pending surgery for the other eye and should continue to follow up with ophthalmology. Plan Plan Patient was informed and verbally consented to the use of an ambient scribe for clinic note documentation during this visit. 1. Spinal Stenosis Of Lumbar Region, Status Post L4-L5 Decompression The patient is recovering from a recent L4-L5 decompression for spinal stenosis and continues to experience persistent tingling down the legs, similar to pre-operative symptoms. The patient is scheduled to begin physical therapy on the of the month, which is anticipated to help with symptoms and nerve recovery. The patient was advised to wait for physical therapy instruction before starting exercises and to adhere to a lifting restriction of less than 8 pounds. A follow-up appointment is scheduled for February 22 to monitor progress. 2. Need For Assistance With Adls The patient lives alone and has expressed a need for assistance with activities of daily living, such as washing dishes and doing laundry. Referrals were placed for a home health aide, senior living, and a director of medical education to provide support. Application paperwork for a handicap placard was completed to aid with community mobility. 3. Essential Hypertension The patient's blood pressure is well-controlled on the current regimen of amlodipine and lisinopril 10 mg. Will continue current medications, and no refills are needed at this time. 4. Glaucoma The patient has a history of glaucoma and has had surgery on one eye. The patient is pending surgery for the other eye and should continue to follow up with ophthalmology. Discussion Notes I discussed the patient's post-operative recovery with the patient. I inspected the surgical scar on the patient's back and confirmed it is well-healed, showing the patient a picture for reassurance. We discussed that the persistent tingling in the legs is not uncommon as the nerves heal post-surgery and that physical therapy should help with these symptoms. Given that the patient lives alone and needs help with daily tasks, I placed orders for a home health aide, senior living, and a director of medical education. I provided the patient with completed paperwork for a handicap placard. I advised the patient to wait for physical therapy to begin before starting any new exercises and to adhere to lifting restrictions. I informed the patient that no new medications or lab work are needed at this time and to contact our office if home health services do not make contact within a month. We confirmed the next follow-up appointment is in February. Orders: Orders Influenza [id number] Immunization Today Z23 - Encounter for immunization [facility]errals [facility] Referral I10 - Essential (primary) hypertension, M48.00 - Spinal stenosis, site unspecified, R01.1 - Cardiac murmur, unspecified, Z98.1 - Arthrodesis status Medications: New Fluarix [id number] (PF) (flu vac ts 2024-(6mos up)-PF) 0.5 mL IM ONCE 0.5 mL 0RF NS Z23 - Encounter for immunization Patient Instructions: Patient Instructions - You will start physical therapy on the . - Do not start any new exercises until your physical therapist tells you what is safe to do. - Do not lift anything heavier than 8 pounds, which is about the weight of a gallon of milk. - We have put in an order for a home health aide to help you at home. - If you do not hear from the home health agency within one month, please call our office. - Please mail the completed paperwork for the handicap parking placard. - You do not need any medication refills at this time. - Keep your follow-up appointment with our office on February 22.
[2025-01-12 09:48] VITALS: BP 121/59; PULSE 75; TEMP 36; O2SAT 97; BMI 31.0
--- OUTSIDE RECORDS SUMMARY | 2025-01-12 11:16 | XMS_ITS | Clinical Summary ---
Author Organization [facility] Address [address] [place] [address] Phone Care Team Providers Care Grinder Chipper Name Role Phone Oneil Goel MD Primary Care Provider [phone] Allergies Active Allergy Reactions Criticality Noted Date Comments Naproxen Low 05/23/2020 nose bleed Medications acetaminophen (TYLENOL) 500 mg tablet Take 2 tablets (1,000 mg total) by mouth. 4 Active amLODIPine (NORVASC) 10 mg tablet Take 1 tablet (10 mg total) by mouth 1 (one) time each day. 2 Active brimonidine (ALPHAGAN P) 0.15 % ophthalmic solution Administer 1 drop into both eyes 2 (two) times a day. 5 Active dorzolamide-mino oloL (COSOPT) 22.3-6.8 mg/mL ophthalmic solution Administer 1 drop into the left eye 2 (two) times a day. 5 Active finasteride (PROSCAR) 5 mg tablet [...] (4 mg total) by mouth. 4 Active oxyCODONE (ROXICODONE) 5 mg immediate release tablet Take 1 tablet (5 mg total) by mouth every 6 (six) hours if needed for severe pain. Max Daily Amount: 20 mg 20 tablet 5 Active chlorhexidine (PERIDEX) 0.12 % solution 5 Active Active Problems Problem Noted Date Diagnosed Date Spinal stenosis, lumbar beth on without neurogenic claudication 11/26/2024 Lumbar stenosis with neurogenic claudication Assessment & Plan (12/25/2024 2:26 PM EST): Mr. Kebede is about 10 days status post open L4-5 decompression. Surgery he notices complete relief from his right leg symptoms not much improvement on the left. The left was his worst side before the surgery. Denies any fevers shakes chills or problems of bowel or bladder control. He is neurologically intact. He ambulates with the aid of a quad cane but did not seem to need it. He is pleased with his early postoperative results and hoping for more improvement. He excepted a prescription for physical therapy. He is welcome to follow-up with us in the future on an as needed basis. Assessment & Plan (07/31/2024 1:23 PM EDT): [...] Encounters Date Type Department Care Team Description 12/25/2024 2:00 PM EST Office Visit Neurosurgery [facility] [address] [facility] [address] [place] [phone] Dewayne Webb PA Lumbar stenosis with neurogenic claudication (Primary Dx) 12/18/2024 Telephone Neurosurgery [facility] [address] [phone] Cesilia Barnes ID 12/15/2024 1:26 PM EDT Anesthesia Event [facility] Main OR [address] [place] [address] Augustine Nunez MD Freeman, Katharine O, MD 12/15/2024 12:55 PM EDT - 12/15/2024 3:25 PM EDT Surgery [facility] Main OR [address] [place] [address] Sheryl Andersen MD L4-5 Open decompression [55060 (CPT )] 12/15/2024 9:56 AM EDT - 12/15/2024 6:11 PM EDT Hospital Encounter [facility] Main OR [address] [place] [address] Sheryl Andersen MD Spinal stenosis, lumbar region without neurogenic claudication Discharge Disposition: Home or Self Care 12/15/2024 7:10 AM EDT - 12/15/2024 11:59 PM EDT Hospital Encounter [facility] Xray [address] [place] [address] Pain Discharge Disposition: Home or Self Care from Last 3 Months Surgical History Surgery Date Site/Laterality Comments OTHER SURGICAL HISTORY Left RMVL SEC MEM[facility]ANOUS CTRC CORNEO-SCLL SCTJ HERNIA REPAIR 1ST INGUN HRNA AGE 5 MO-5 YRS REDUCIBLE CHOLECYSTECTOMY BACK SURGERY 12/15/2024 L4-[address] Andersen Medical History Medical History Date Comments Essential hypertension Glaucoma Arthritis Spinal stenosis Social History Tobacco Use Types Packs/Day Years Used Date Smoking Tobacco: Never Smokeless Tobacco: Never Tobacco Cessation:Counseling Given: Not Answered Alcohol Use Standard Drinks/Week Comments Not Currently 0 (1 standard drink = 0.6 oz pur e alcohol) Interpersonal Safety Answer Date Record ed Physical Abuse Unrecognized value 12/15/2024 Verbal Abuse Unrecognized value 12/15/2024 Sex and Gender Information Value Date Recorded Sex Assigned at Not on file Legal Sex Male 10:06 AM EST Gender Identity Not on file Sexual Orientation Not on file Obstetrics History Last Filed Vital Signs Vital Sign Reading Time Taken Comments Blood Pressure 141/66 12/15/2024 4:07 PM EDT Pulse 90 12/15/2024 4:07 PM EDT Temperature 36.6 C (97.8 F) 12/15/2024 4:07 PM EDT Respiratory Rate 14 12/15/2024 4:07 PM EDT Oxygen Saturation 98% 12/15/2024 4:07 PM EDT Inhaled Oxygen Concentration - - Weight 89.3 kg (196 lb 14.4 oz) 12/25/2024 1:50 PM EST Height 177.8 cm (5' 10 ) 12/25/2024 1:50 PM EST Body Mass Index 28.25 12/25/2024 1:50 PM EST Plan of Treatment Upcoming Encounters Date Type Department Care Team (Late st Contact Info) Description 01/27/2025 10:00 AM EST Evaluation Outpatient Rehabilitation - [address] [phone] Luc Santana, PT Health Maintenance Due Date Last Done Comments Pneumococcal Vaccine: 50+ Years (2 of 2 - PCV20 or PCV21) 08/03/2015 08/02/2014, 08/09/2010 Cholesterol Screening (Lipid Panel) 01/21/2022 Falls Risk Assessment 01/21/2022 Medicare Annual Wellness Visit 01/21/2022 Social Influencers of Health Screening 01/21/2022 Depression Screening 02/19/2024 COVID-19 Vaccine ( season) 2025 11/13/2024, 11/08/2023, 11/09/2022, Additional history exists Hypertension/CHF/CAD Annual BMP Blood Test 07/04/2025 07/04/2024, 04/23/2024 DTaP,Tdap,and Td Vaccines (3 - Td or Tdap) 10/31/2030 10/31/2020, 08/09/2010 Zoster Vaccines Completed 06/29/2020, 10/19, 11/09/2011 RSV Immunization Adult Patients Completed 12/02/2022 Influenza Vaccine Completed 11/13/2024, , 10/18/2023, Additional history exists HIB Vaccines Aged Out No longer eligi [...] Plan Autogenerated Problem No Cesilia Latham MA Medical Devices Implanted Type Area Trolley Car Mechanic Device Identifier Shelf Expiration Date Model / Serial / Lot Powder Surgifoam Absorb Gel - Sn/A - [id number] Implanted:Qty : 1 on 12/15/2024 by Sheryl Andersen MD at [facility] [employer] N/A: Spine Lumbar [employer] [id number] 09/08/20261977 / N/A / [id number] Procedures Procedure Name Priority Date/Time Associated Diagnosis Comments OXYGEN THERAPY, ADULT Routine 12/15/2024 3:03 PM EDT XR SPINE 1 VIEW Routine 12/15/2024 2:35 PM EDT Pain TISSUE EXAM Routine 12/15/2024 2:15 PM EDT Spinal stenosis, lumbar region without neurogenic claudication TH AN ENDOTRACHEAL(NO CHARGE) Routine 12/15/2024 1:54 PM EDT NM NARANJO FACETECTOMY & FORAMINOTOMY SINGLE VERTEBRAL SEGMENT LUMBAR 12/15/2024 1:25 PM EDT Spinal stenosis, lumbar region without neurogenic claudication Case Notes C-ARMjas, 23-HR BED BASIC METABOLIC PANEL STAT 07/04/2024 5:21 PM EDT from Last 3 Months or Most Recently Relevant to Health Maintenance Results * XR Spine 1 View (12/15/2024 2:35 PM EDT) Anatomical Region Laterality Modality Spine Radio Fluoroscop y 12/16/2024 7:54 AM EDT Impressions 12/16/2024 7:56 AM EDT A metallic probe projects posterior to the L4-5 interspace on each submitted image. Code 59742 The dose-area product for this procedure was 69.35 uGy*m2. PQRI CPT II G9500 -------- FINAL REPORT -------- Dictated By: Juan José Ann Dictated Date: 12/16/2024 07:54 ET Assigned Physician: Juan José Ann Reviewed and Electronically Signed By: Juan José Ann Signed Date: 12/16/2024 07:56 ET Workstation ID: [id number] Transcribed By: Self Edit Transcribed Date: 12/16/2024 07:54 ET Narrative 12/16/2024 7:56 AM EDT HISTORY: The patient is an 79-year-old male undergoing lumbar spine surgery. FINDINGS: 2 fluoroscopic spot lateral views of the lower lumbar spine obtained in the operating room are submitted. Each image demonstrates a metallic probe projecting posterior to the L4-5 interspace. The alignment of the included bony structures is anatomic. No fracture is seen. Procedure Note Juan José Ann MD - 12/16/2024 HISTORY: The patient is an 79-year-old male undergoing lumbar spinesurgery. FINDINGS: 2 fluoroscopic spot lateral views of the lower lumbar spineobtained in the operating room are submitted. Each image demonstrates ametallic probe projecting posterior to the L4-5 interspace. The alignmentof the included bony structures is anatomic. No fracture is seen. IMPRESSION: A metallic probe projects posterior to the L4-5 interspace on eachsubmitted image. Code 85309 The dose-area product for this procedure was 69.35 uGy*m2. PQRI CPT II G9500 -------- FINAL REPORT -------- Dictated By: Juan José Ann Dictated Date: 12/16/2024 07:54 ET Assigned Physician: Juan José Ann Reviewed and Electronically Signed By: Juan José Ann Signed Date: 12/16/2024 07:56 ET Workstation ID: [id number] Transcribed By: Self Edit Transcribed Date: 12/16/2024 07:54 ET us Sheryl Andesren MD IMG XR PROCEDURES Final Result * Tissue exam (12/15/2024 2:15 PM EDT) Final Diagnosis Spine, lumbar, L4-5 bone and ligament: Fibrocartilage with degenerative changes Degenerative joint disease 12/17/2024 2:10 PM EDT [facility] at 1410 EDT Gross Description A. Spine, Lumbar, L4-5 bone and ligament: Labeled lumbar, L4-5 bone . Received in formalin is a 5.8 x 4.6 x 1.3 cm aggregate of irregular pink-yellow to white bone and rubbery tissue fragments. The trabecular bone is pink-yellow and unremarkable. No masses or lesions are appreciated. Senior Clinical Project Manager sections are submitted following decalcification in one cassette, multiple pieces. MYRON 12/17/2024 2:10 PM EDT [facility] Disclaimer Unless otherwise specified, all tissue is 10% NB formalin fixed and paraffin embedded. 12/17/2024 2:10 PM EDT [facility] Bone Lumbar spine structure / Unknown 12/15/2024 2:15 PM EDT 12/15/2024 3:44 PM EDT us Sheryl Andersen MD LAB PATHOLOGY ORDERABLES Final Result [facility] [address] [place] [address], [place] [phone] * TH AN ENDOTRACHEAL(NO CHARGE) (12/15/2024 1:54 PM EDT) Halima Estrella CRNA - 12/15/2024 1:54 PM EDT Halima Goins CRNA 12/15/2024 2:13 PM General Information and Staff Patient location during procedure: OR Anesthesiologist: Augustine Nunez MD Other anesthesia staff: YOHANA George Performed: other anesthesia staff and anesthesiologist Performed by: Halima Goins CRNA Authorized by: Augustine Nunez MD Intubation Additional Comments Ett secured to the right of the mouth free of pressure with silk tape- dentition unchanged- atraumatic Airway not difficult Reason: elective Final Airway Details Successful airway: ETT Cuffed: yes Successful intubation technique: direct laryngoscopy Adjuncts used in placement: cricoid pressure and intubating stylet Endotracheal tube insertion site: oral Blade: Ann Blade size: #4 ETT size (mm): 7.5 Cormack-Lehane Classification: grade IIb - view of arytenoids or posterior of glottis only Placement verified by: chest auscultation, capnometry and palpation of cuff Cuff volume (mL): 10 Measured from: lips ETT to lips (cm): 23 Final airway type: endotracheal airway Indications and Patient Condition Indications for airway management: anesthesia Sedation level: Yes Preoxygenated: yesSoft Tissue Damage: No Dentition Unchanged: Yes Patient position: sniffing Mask difficulty assessment: 1 - vent by mask Augustine Nunez MD ANESTHESIA ORDERABLES Edited Result - Final * (ABNORMAL) Basic metabolic panel (07/04/2024 5:21 PM EDT) Sodium 136 133 - 145 mmol/L LAB CHEMISTRY METHOD 07/04/2024 6:43 PM EDT [facility] Potassium 4.2 3.5 - 5.5 mmol/L LAB CHEMISTRY METHOD 07/04/2024 6:43 PM EDT [facility] Chloride 107 96 - 110 mmol/L LAB CHEMISTRY METHOD 07/04/2024 6:43 PM EDT [facility] CO2 23 21 - 32 mmol/L LAB CHEMISTRY METHOD 07/04/2024 6:43 PM EDT [facility] Anion Gap 6 3 - 11 LAB [facility]STR[facility]24 [facility] Glucose 118(H) 70 - 100 mg/dL LAB CHEMISTRY METHOD 07/04/2024 6:43 PM EDT [facility] BUN 13 5 - 25 mg/dL LAB CHEMISTRY METHOD 07/04/2024 6:43 PM [facility] Creatinine 0.82 0.70 - 1.30 mg/dL LAB CHEMISTRY METHOD 07/04/2024 6:[facility] eGFR 89 >=60 mL/min/1. 73m2 LAB CHEMISTRY METHOD 07/04/2024 6:43 PM EDT [facility] Comment:Calculation based on the Chronic Kidney Disease Epidemiology Collaboration (CKD-EPI) equation refit without adjustment for race. BUN/Creatinine Ratio 15.9 LAB CHEMISTRY METHOD 07/04/2024 6:43 PM T [facility] Calcium 9.5 8.5 - 10.5 mg/dL LAB CHEMISTRY METHOD 07/04/2024 6:43 PM [facility] Blood Venous blood specimen / Unknown 07/04/2024 5:21 PM EDT 07/04/2024 5:58 PM EDT us Italo Samayoa MD LAB BLOOD ORDERABLES Final Resu lt [facility] [address] [place] [address], from Last 3 Months or Most Recently Relevant to Health Maintenance Additional Health Concerns Active Problems Noted Date Diagnosed Date Autogenerated Problem 11/26/2024 Insurance [employer] MEDICARE Advance Directives * Full Code - Default (Latest Code Status on File) Date Activated Date Inactivated Comments 12/15/2024 10:04 AM 12/15/2024 8:27 PM This is o rder is used when code status has not been discussed with the patient, or code status is otherwise unknown/unconfirmed To update the patient's code status, place a code status order. Do not modify or discontinue any currently active code status orders. Care Teams Grinder Chipper Relationship Specialty Start Date End Date Oneil Goel MD [address] [place] PCP - General Internal Medicine 08/23/21
--- OUTSIDE RECORDS SUMMARY | 2025-01-12 11:16 | XMS_ITS | Clinical Summary ---
Author Organization [facility] Address [address] [place] [address] Care Team Providers Care Parking Attendant Name Role Phone Oneil Goel MD Primary Care Provider [phone] Social History Tobacco Use Types Packs/Day Years [...] age to complete this topic Care Teams Parking Attendant Relationship Specialty Start Date End Date Oneil Goel MD [address] [address] PCP - General Internal Medicine 01/04/20
== END 2025-01-12 10:23 | disposition home or self-care (01) ==
LOC: HO.HMCSH 09:41
PROVIDERS: PCP Physician Assistant Medical; Visit Provider Physician Assistant Medical
DX: Z98.1 Arthrodesis status (principal); Z75.0 Medical services not available in home; I10 Essential (primary) hypertension; H40.9 Unspecified glaucoma; Z23 Encounter for immunization

== ENCOUNTER → 2025-01-12 09:41 | Outpatient (BNVA) | payer MEDICARE, SELFPAY | PROVIDERS: PCP Physician Assistant Medical; Visit Provider Physician Assistant Medical | DX: I10 Essential (primary) hypertension (principal); Z98.1 Arthrodesis status; H40.9 Unspecified glaucoma; R01.1 Cardiac murmur, unspecified; Z13.31 Encounter for screening for depression; Z74.2 Need for assistance at home and no other household member able to render care | CPT/HCPCS: 90471; 96127; 99212 ==

== ENCOUNTER 2025-02-04 11:28 | Outpatient (AMB) | payer MEDICARE, SELFPAY ==
--- OUTSIDE RECORDS SUMMARY | 2025-02-02 15:00 | XMS_ITS | Encounter Summary ---
Author Organization [facility] Address [address] [place] [address] Care Team Providers Care Cap Cutter Name Role Phone Oneil Goel MD Primary Care Provider [phone] Reason for Visit * Consultation (Routine) - Authorized Specialty Diagnoses / Procedures Referred By Contac t Referred To Contact Physical Therapy Diagnoses Lumbar stenosis with neurogenic claudication Dewayne Webb PA [address] [address] Phone: tel: fax: Referral ID Status Reason Start Date Expiration Date Visits Requested Visits Authorized [id number] Authorized Specialty Services Required 12/25/2024 12/25/2025 12 12 Encounter Details Date Type Department Care Team (Latest Contact Info) Description 02/02/2025 3:00 PM EST Treatment Outpatient Rehabilitation [address] [phone] Salma Mcclain PTA Spinal stenosis, lumbar region, with neurogenic claudication (Primary Dx) Social History Tobacco Use Types Packs/Day Years [...] on file Sexual Orientation Not on file documented as of this encounter Functional Status * Are you deaf or do you have serious difficulty hearing? Answer Date of Assessment Author No 07/04/2024 5:32 PM EDT Sandy Moore RN * Are you blind or do you have serious difficulty seeing, even when wearing glasses? Answer Date of Assessment Author No 07/04/2024 5:32 PM EDT Sandy Moore RN * Do you have serious difficulty walking or climbing stairs? Answer Date of Assessment Author No 07/04/2024 5:32 PM EDT Sandy Moore RN * Do you have serious difficulty dressing or bathing? Answer Date of Assessment Author No 07/04/2024 5:32 PM EDT Sandy Moore RN * Because of a physical, mental, or emotional condition, do you have serious difficulty doing errandsalone such as visiting the doctor? Answer Date of Assessment Author No 07/04/2024 5:32 PM EDSandy Chun RN documented as of this encounter Mental Status * Because of a physical, mental, or emotional condition, do you have serious difficulty concentrating, remembering, or making decisions? (5 years old or older) Answer Entry Date Author No 07/04/2024 5:32 PM Sandy Ross RN documented in this encounter Progress Notes * Salma Mcclain PTA - 02/02/2025 3:00 PM EST [facility] - Outpatient PHYSICAL THERAPY DAILY TREATMENT NOTE - OP Date: 02/02/2025 Visit Number: 2 Patient Name: Bipin Duncan : 1945 Age: 79 y.o. Gender: male Diagnosis: ICD-10-CM ICD-9-CM 1. Spinal stenosis, lumbar region, with neurogenic claudication M48.062 724.03 Date of Onset/Surgery: 12/15/2024 Referring Provider: Dewayne Webb PA Insurance: Payor: [facility] / Plan: [facility] MED[facility] COMPLETE / Product Type: *No Product type* / Patient Identified by: Salma Mcclain PTA Language: Danish Medications: Medications Ordered Prior to Encounter[1] Allergies: is allergic to naproxen. Precautions: Fall risk: No Patient/Caregiver Goals: SUBJECTIVE Subjective Report: I have no pain when I sit or lay down Chart Reviewed: Yes Pain 0/10 OBJECTIVE TREATMENT INTERVENTION: Modalities: None performed Procedures: Nustep x5min Seated hip IR with foam roll squeeze 2x10 Supine HS stretch with strap 20 sec x3 HL clams GTB 2x10 Bridges 2x10 HEP: standing marching at counter; standing hip ext and Abd, seated piriformis stretch ASSESSMENT/Response to Treatment Good Began core strengthening in supine with no increased symptoms reported Patient Education: Education provided: Yes Education Provided To: Patient utilizing Explanation and Demonstration mode(s) of education Response to Education: Applied Knowledge and Verbal Understanding PLAN POC Development/Review: No Change in the Plan of Care; Participants: Patient Total Treatment Time: 30 Modalities: Therapeutic procedures: Documentation completed by Salma Mcclain PTA [1] Current Outpatient Medications on File Prior to Visit Medication Sig Dispense Refill acetaminophen (TYLENOL) 500 mg tablet Take 2 tablets (1,000 mg total) by mouth. amLODIPine (NORVASC) 10 mg tablet Take 1 tablet (10 mg total) by mouth 1 (one) time each day. brimonidine (ALPHAGAN P) 0.15 % ophthalmic solution Administer 1 drop into both eyes 2 (two) times a day. chlorhexidine (PERIDEX) 0.12 % solution dorzolamide-timoloL (COSOPT) 22.3-6.8 mg/mL ophthalmic solution Administer 1 drop into the left eye2 (two) times a day. finasteride (PROSCAR) 5 mg tablet lactulose (CHRONULAC) solution Take by mouth. lisinopriL (PRINIVIL,ZESTRIL) 10 mg tablet Take 1 tablet (10 mg total) by mouth 1 (one) time each day. oxyCODONE (ROXICODONE) 5 mg immediate release tablet Take 1 tablet (5 mg total) by mouth every 6 (six) hours if needed for severe pain. Max Daily Amount: 20 mg 20 tablet 0 tamsulosin (FLOMAX) 0.4 mg 24 hr capsule Take 1 capsule (0.4 mg total) by mouth. tolterodine LA (DETROL LA) 4 mg 24 hr capsule Take 1 capsule (4 mg total) by mouth. No current facility-administered medications on file prior to visit. documented in this encounter Plan of Treatment Upcoming Encounters Date Type Department Care Team (Late st Contact Info) Description 02/09/2025 3:00 PM EST Treatment Outpatient Rehabilitation - [address] [phone] Salma Mcclain, SUPERVISOR FILTER ASSEMBLY 02/16/2025 3:00 PM EST Treatment Outpatient [facility] - [address] [phone] Salma Mcclain, SUPERVISOR FILTER ASSEMBLY 02/23/2025 2:30 PM EST Treatment Outpatient Rehabilitation - [address] [phone] Luc Santana, ASHA documented as of this encounter Goals Goal Patient Goal Type Associated Problems Recent Progress Patient-Stated? Author Autogenerat ed Goal Care Plan Autogenerated Problem No Cesilia Latham MA documented as of this encounter Visit Diagnoses Diagnosis Spinal stenosis, lumbar region, with neurogenic claudication- Primary documented in this encounter Additional Health Concerns Active Problems Noted Date Diagnosed Date Autogenerated Problem 11/26/2024 documented as of this encounter Care Teams Cap Cutter Relationship Specialty Start Date End Date Oneil Goel MD [address] [place] [address] Therese Jacobs MA PCP - General Internal Medicine 08/23/21 documented as of this encounter
--- NOTE | 2025-02-04 11:39 | MHC.OFFVIS ---
Intake Visit Reasons: 6M/ PVR SET UA Intake Note: Reason for Visit: PVR Follow Up Urology Meds: Tamsulosin, Tolterodine, Finasteride Blood Thinners: None Labs: None Imaging: None Last PVR: 11ml PVR 0ml Allergies No Known Allergies Allergy (Verified 01/12/25 10:37) HPI Comments Details: Bipin is a very pleasant male. He is a patient Dr. Goel. He is seen for the following urologic conditions - nocturia - lower urinary tract symptoms - OAB dry Six-month follow-up Stable Recent lumbar spinal decompression with minimal improvement on urination On tolterodine with concomitant prostate medications finasteride and tamsulosin- continued with good control of bladder urgency with effective emptying Stable bladder emptying Nocturia x3 - does get 4-1/2 hours sleep before 1st void Lower urinary tract symptoms Current encounter for medication Initial symptoms nocturia x2, Weakness of stream, Incomplete bladder emptying Current therapy combination finasteride and tamsulosin 0.4 Tolterodine added for urinary urgency and frequency PSA 11/08 0.2 PFSH Medical History (Updated 01/12/25 @ 10:46 by Francie Kessler PA-C) No home medical services Degenerative disc disease Spinal stenosis Heart murmur Pre-op evaluation Encounter for preventive care Vertigo Glaucoma Establishing care with new doctor, encounter for Arthritis Bilateral inguinal hernia Bilateral open angle glaucoma Benign essential HTN Chronic constipation Colon polyps Surgical History (Updated 01/12/25 @ 10:46 by Francie Kessler PA-C) Status post laminectomy with spinal fusion Hx of cholecystectomy History of colonoscopy (~09/03/19) History of surgery Family History Father No problems noted. Mother Diabetes High blood pressure Social History Housing: House Alcohol intake: current Alcohol intake frequency: does not drink Patient Tobacco Use Status: Former Tobacco user service: Yes Current occupational status: retired Cognitive needs: No Hearing needs: No Vision needs: Yes (rx glasses) Review of Systems Const Denies chills and Denies fever(s) Card Reports no additional complaints and Denies syncope Resp Denies cough GI Denies abdominal pain and Denies heartburn Reports as per HPI and Denies change in libido Neuro Denies syncope Psych Denies change in libido Endo Denies change in libido Physical Exam Const General: cooperative, healthy appearing, comfortable and no acute distress Orientation/consciousness: patient oriented x3 HEENT Face and sinus: Yes normal facial exam Mouth: moist mucous membranes Neck Neck: Yes normal visual inspection, Yes full ROM and Yes trachea midline Chest Chest palpation & inspection: normal inspection of the chest Resp Effort & Inspection: normal respiratory effort, able to speak in complete sentences and no respiratory distress GI Inspection: Yes normal to inspection Back/Spine/Pelvis Cervical Spine: normal cervical lordosis Thoracic/Lumbar Spine: thoracic and lumbar spine normal to inspection Skin General skin exam: no rashes or lesions noted Neuro General: patient oriented x3, gait normal, tone normal and moves all extremities Extrem General: Yes normal to inspection and Yes capillary refill normal Office Procedures Post Void Residual Post Residual Void Post Void Residual (PVR): 0 [id number] Void Residual by ultrasound Assessment & Plan Assessment & Plan (1) Overactive bladder: Code(s): N32.81 - Overactive bladder Category: Medical (2) Nocturia more than twice per night: Code(s): R35.1 - Nocturia Category: Medical (3) BPH w urinary obs/LUTS: Code(s): N40.1 - Benign prostatic hyperplasia with lower urinary tract symptoms; N13.8 - Other obstructive and reflux uropathy Category: Medical Plan Six-month follow-up PVR Refill medications Orders: Orders AMB Post Void Residual by ultrasound 02/04/25 N40.1 - Benign prostatic hyperplasia with lower urinary tract symptoms, N13.8 - Other obstructive and reflux uropathy Medications: Refilled tamsulosin 0.4 mg PO BEDTIME 90 caps 1RF 90 days N40.1 - Benign prostatic hyperplasia with lower urinary tract symptoms, N13.8 - Other obstructive and reflux uropathy Patient Instructions: This note is constructed using voice recognition software. While every effort has been made to ensure accuracy powder compounder errors may have been included. Imaging studies, laboratory and physical exam results were discussed and reviewed in detail. No major barriers to patient understanding were identified. An opportunity to ask questions regarding the treatment plan was provided. All questions were answered. The patient expressed understanding and agreement with the above treatment plan. The patient is aware they should contact our office by phone for worsening of their current condition or the appearance of new urologic symptoms. Compliance is encouraged with any medications and followup testing that is ordered. It is a privilege to participate in the urologic care of your patient. If you have any questions or concerns regarding treatment for the above conditions, or other urologic issues, please do not hesitate to contact me. The office telephone contact is [phone]. Sincerely, Dr Chuck Membreno MD, [facility] - Urology Compassionate Specialist Care for the Genitourinary System Coding Level of Care Code Est Pt Level 3 (86863) Add On Problem Visit Only Diagnoses Overactive bladder N32.81 Nocturia more than twice per night R35.1 BPH w urinary obs/LUTS N40.1; N13.8 CPT Codes Post Residual Void - PVR CPT Code: 12308-Mdaw Void Residual by ultrasound ([id number])
--- OUTSIDE RECORDS SUMMARY | 2025-02-04 15:05 | XMS_ITS | Clinical Summary ---
Author Organization [facility] Address [address] [place] [address] Phone Care Team Providers Care Silk Weaver Name Role Phone Oneil Goel MD Primary Care Provider [phone] Allergies Active Allergy Reactions Criticality Noted Date [...] Encounters Date Type Department Care Team Description 02/02/2025 3:00 PM EST Treatment Outpatient Rehabilitation - [address] [phone] Salma Mcclain PTA Spinal stenosis, lumbar region, with neurogenic claudication (Primary Dx) 01/27/2025 10:00 AM EST Evaluation Outpatient Rehabilitation - [address] [phone] Luc Santana PT Spinal stenosis, lumbar region, with neurogenic claudication (Primary Dx) 01/27/2025 Plan of Care Documentation Outpatient Rehabilitation - [address] [phone] 12/25/2024 2:00 PM EST Office Visit Neurosurgery [address] [phone] Dewayne Webb PA Lumbar stenosis with neurogenic claudication (Primary Dx) 12/18/2024 Telephone Neurosurgery [address] [phone] [facility] [place] 12/15/2024 1:26 PM EDT Anesthesia Event [facility] [place] [address] [place] [phone] Augustine Nunez MD Freeman, Katharine O, MD 12/15/2024 12:55 PM EDT - 12/15/2024 3:[address] [facility] [place] [address] [place] [phone] Sheryl Andersen MD L4-5 Open decompression [41404 (CPT )] 12/15/2024 9:56 AM EDT - 12/15/2024 6:11 PM EDT Hospital Encounter [facility] [place] [address] [place] [phone] Sheryl Andersen MD Spinal stenosis, lumbar region without neurogenic claudication Discharge Disposition: Home or Self Care 12/15/2024 7:10 AM EDT - 12/15/2024 11:59 PM EDT Hospital Encounter [facility] Xray [address] [place] [address] Pain Discharge Disposition: Home or Self Care [...] on file Sexual Orientation Not on file Last Filed Vital Signs Vital Sign Reading [...] 3:00 PM EST Treatment Outpatient Rehabilitation - [address] [phone] Salma Mcclain PTA 02/16/2025 3:00 PM EST Treatment Outpatient Rehabilitation - [address] [phone] Salma Mcclain PTA 02/23/2025 2:30 PM EST Treatment Outpatient [address] [phone] Luc Santana, PT Health Maintenance Due Date [...] [place] Medical Devices Implanted Type Area Rear Admiral Device Identifier Shelf Expiration Date Model / Serial / Lot Powder Surgifoam Absorb Gel - Sn/A - [id number] Implanted:Qty : 1 on 12/15/2024 by Sheryl Andersen MD at [facility] [employer] N/A: Spine Lumbar [employer] [id number] 09/08/20261977 / N/A / [id number] Procedures Procedure Name Priority Date/Time Associated Diagnosis Comments OXYGEN THERAPY, ADULT Routine 12/15/2024 3:03 PM EDT XR SPINE 1 VIEW Routine 12/15/2024 2:35 PM EDT Pain TISSUE EXAM Routine 12/15/2024 2:15 PM EDT Spinal stenosis, lumbar region without neurogenic claudication TH AN ENDOTRACHEAL(NO CHARGE) Routine 12/15/2024 1:54 PM EDT ID NARANJO FACETECTOMY & FORAMINOTOMY SINGLE VERTEBRAL SEGMENT LUMBAR 12/15/2024 1:25 PM EDT Spinal stenosis, lumbar region without neurogenic claudication Case Notes C-ARM, jas, 23-HR BED BASIC METABOLIC PANEL STAT 07/04/2024 5:21 PM EDT from Last 3 Months or Most Recently Relevant to Health Maintenance Results * XR Spine 1 View (12/15/2024 2:35 PM EDT) Anatomical Region Laterality Modality Spine Radio Fluoroscop y 12/16/2024 7:54 AM EDT Impressions 12/16/2024 7:56 AM EDT A metallic probe projects posterior to the L4-5 interspace on each submitted image. Code 05650 The dose-area product for this procedure was 69.35 uGy*m2. PQRI CPT II G9500 -------- FINAL REPORT -------- Dictated By: Juan José Ann Dictated Date: 12/16/2024 07:54 ET Assigned Physician: Juan José Ann Reviewed and Electronically Signed By: Juan José Ann Signed Date: 12/16/2024 07:56 ET Workstation ID: [id number] Transcribed By: Self Edit Transcribed Date: 12/16/2024 [...] the L4-5 interspace on eachsubmitted image. Code 30959 The dose-area product for this procedure was 69.35 uGy*m2. PQRI CPT II G9500 -------- FINAL REPORT -------- Dictated By: Juan José Ann Dictated Date: 12/16/2024 07:54 ET Assigned Physician: Juan José Ann Reviewed and Electronically Signed By: Juan José Ann Signed Date: 12/16/2024 07:56 ET Workstation ID: [id number] Transcribed By: Self Edit Transcribed Date: 12/16/2024 07:54 ET us Sheryl Andersen MD IMG XR PROCEDURES Final Result * Tissue exam (12/15/2024 2:15 PM EDT) Final Diagnosis Spine, lumbar, L4-5 bone and ligament: Fibrocartilage with degenerative changes Degenerative joint disease 12/17/2024 2:10 PM EDT [facility] at 1410 EDT Gross Description A. Spine, Lumbar, L4-5 bone and ligament: Labeled lumbar, L4-5 bone . Received in formalin is a 5.8 x 4.6 x 1.3 cm aggregate of irregular pink-yellow to white bone and rubbery tissue fragments. The trabecular bone is pink-yellow and unremarkable. No masses or lesions are appreciated. Metal Shaping Machine Operator sections are submitted following decalcification in one cassette, multiple pieces. MYRON 12/17/2024 2:10 PM EDT [facility] Disclaimer Unless otherwise specified, all tissue is 10% NB formalin fixed and paraffin embedded. 12/17/2024 2:10 PM EDT [facility] Bone Lumbar spine structure / Unknown 12/15/2024 2:15 PM EDT 12/15/2024 3:44 PM EDT Sheryl Andersen MD LAB PATHOLOGY ORDERABLES Final Result [facility] [address] [place] [address], * TH AN ENDOTRACHEAL(NO CHARGE) (12/15/2024 1:54 PM EDT) Narrative Halima Goins CRNA - 12/15/2024 1:54 PM EDT Halima [...] difficulty assessment: 1 - vent by mask us Augustine Nunez MD ANESTHESIA ORDERABLES Edited Result - Final * (ABNORMAL) Basic metabolic panel (07/04/2024 5:21 PM EDT) Sodium 136 133 - 145 mmol/L LAB CHEMISTRY METHOD 07/04/2024 6:43 PM [facility] Potassium 4.2 3.5 - 5.5 mmol/L LAB CHEMISTRY METHOD 07/04/2024 6:43 PM [facility] Chloride 107 96 - 110 mmol/L LAB CHEMISTRY METHOD 07/04/2024 6:43 PM [facility] CO2 23 21 - 32 mmol/L LAB CHEMISTRY METHOD 07/04/2024 6:43 PM [facility] Anion Gap 6 3 - 11 LAB CHEMISTRY METHOD 07/04/2024 6:43 PM [facility] Glucose 118(H) 70 - 100 mg/dL LAB CHEMISTRY METHOD 07/04/2024 6:43 PM [facility] BUN 13 5 - 25 mg/dL LAB CHEMISTRY METHOD 07/04/2024 6:43 PM [facility] Creatinine 0.82 0.70 - 1.30 mg/dL LAB CHEMISTRY METHOD 07/04/2024 6:43 PM [facility] eGFR 89 >=60 mL/min/1. 73m2 LAB CHEMISTRY METHOD 07/04/2024 6:43 PM [facility] Comment:Calculation based on the [...] [facility] [address] [place] [address], [place] [phone] from Last 3 Months or Most Recently [...] currently active code status orders. Care Teams Silk Weaver Relationship Specialty Start Date End Date Mugg, Oneil, MD [address] [facility] [place] PCP - General Internal Medicine 08/23/21
--- OUTSIDE RECORDS SUMMARY | 2025-02-04 15:05 | XMS_ITS | Patient Health Record ---
Author Organization [facility] Address [address] [place] [phone] Care Team Providers Care Supervisor Liquefaction Name Role Phone Jasen Clark Unavailable [phone] Reason For Referral No Information Plan Of Treatment No Information
--- OUTSIDE RECORDS SUMMARY | 2025-02-04 15:05 | XMS_ITS | Clinical Summary ---
Author Organization [facility] Prior to 07/18/24 Address [address] [place] [address] Care Team Providers Care Diamond Polisher Name Role Phone Oneil Goel MD Primary Care Provider [phone] Social History Tobacco Use Types Packs/Day Years [...] age to complete this topic Care Teams Diamond Polisher Relationship Specialty Start Date End Date Oneil Goel MD [address] [place] [address] PCP - General Internal Medicine 01/04/20
== END 2025-02-04 12:02 | disposition home or self-care (01) ==
LOC: HO.HUSH 11:29
PROVIDERS: PCP Internal Medicine; Visit Provider Urology
DX: N32.81 Overactive bladder (principal); R35.1 Nocturia; N40.1 Benign prostatic hyperplasia with lower urinary tract symptoms; N13.8 Other obstructive and reflux uropathy
CPT/HCPCS: 99213; G2211

== ENCOUNTER → 2025-02-04 11:28 | Outpatient (BNVA) | payer MEDICARE, SELFPAY | PROVIDERS: PCP Internal Medicine; Visit Provider Urology | DX: N40.1 Benign prostatic hyperplasia with lower urinary tract symptoms (principal); N13.8 Other obstructive and reflux uropathy | CPT/HCPCS: 51798; 99212 ==